=== PATIENT | male | born 1950 | race Caucasian/White ===

== ENCOUNTER 2019-05-14 18:13 | Inpatient (IN) | payer MEDICARE, SELFPAY ==
[2019-05-14] VITALS (8 sets, daily range): BP systolic 119–148; BP diastolic 55–95; PULSE 66–83; RESP 14–19; TEMP 36.5; O2SAT 97–98; BMI 25.1
--- NOTE | 2019-05-14 18:29 | PC.NURSE ---
Patient seated in waiting room at this time. Will continue to monitor.
[2019-05-14 19:48] LABS: Basophils % 0.1 %; Eosinophils % 0.1 %; Hematocrit 41.8 % (42.0-52.0); Hemoglobin 12.7 g/dL (11.7-16.6); Lymphocytes # 1.1 10^3/uL (0.8-4.8); Lymphocytes % 5.7 %; Mean Corpuscular HGB Conc 30.4 g/dL (30.0-36.0); Mean Corpuscular Hemoglobin 28.1 pg (28.0-34.0); Mean Corpuscular Volume 92.5 fL (80-94); Mean Platelet Volume 9.6 fL (7.4-10.4); Monocytes # 0.7 10^3/uL (0.2-0.9); Monocytes % 3.3 %; Neutrophils # 17.7 10^3/uL (1.8-7.7); Neutrophils % 89.6 %; Nucleated Red Blood Cells % 0 %; Platelet Count 465 10^3/cmm (130-400); Red Blood Count 4.52 10^6/uL (4.1-5.3); Red Cell Distribution Width 15.5 % (12.1-15.1); White Blood Count 19.7 10^3/uL (4.0-10.0)
[2019-05-14 20:06] LABS: Alanine Aminotransferase 40 U/L (0-41); Albumin Level 2.8 g/dL (3.5-5.2); Alkaline Phosphatase 894 IU/L (40-130); Anion Gap 22.7 (5-19); Aspartate Amino Transferase 54 U/L (0-40); Blood Urea Nitrogen 23 mg/dL (8-23); Calcium 10.3 mg/dL (8.5-10.5); Carbon Dioxide 22 mmol/L (22-29); Chloride 86 mmol/L (98-107); Globulin 5.3 g/dL (1.3-4.6); Glomerular Filtration Rate 30.1 mL/min (90-130); Glucose 185 mg/dL (74-106); Potassium 5.7 mmol/L (3.5-5.1); Sodium 125 mmol/L (136-145); Total Bilirubin 0.6 mg/dL (0.15-1.2); Total Protein 8.1 g/dL (6.6-8.7)
--- NOTE | 2019-05-14 20:25 | ED_ITS ---
Entered by Barbara Milton, acting as scribe for Stas Lam DO May 14, 2019 18:13 HPI - General Adult General: Chief complaint: General Medical Stated complaint: back pain/not eating Time Seen by Provider: 05/14/19 20:21 Source: patient Mode of arrival: ambulatory History of Present Illness: HPI narrative: 68 y/o male presents to the ED with complaint of back/side pain. Pt states he has had increased weakness in his legs. Daughter states he is nearly unable to walk. He has difficulty swallowing and therefore has had decreased intake. Pt has hx of liver cirrhosis from heavy alcohol use, but states he stopping drinking 7 years ago. MD complaint: Back Pain Onset (ago): day(s) Location: back Radiation: abdomen Severity: moderate Pain Consistency: constant Relieving factors: none Exacerbating factors: movement Associated symptoms: Deny chest pain, confusion, dyspnea, headache(s), nausea, rash or vomiting Review of Systems Const: Reports: change in appetite and fatigue; Denies: fever or chills Eyes: Denies: change in vision or blurry vision ENMT: Reports: painful swallowing (difficulty swallowing); Denies: ear pain, nasal discharge or nasal congestion Card: Denies: chest pain, edema, shortness of breath on exertion or shortness of breath when lying down Resp: Denies: shortness of breath, productive cough or non-productive cough GI: Reports: abdominal pain; Denies: nausea, vomiting, vomiting blood, coffee grounds in vomit, diarrhea, constipation, bloating, blood in stool or black tarry stool : Reports: blood in urine; Denies: painful urination, urinary frequency or urinary urgency Musc: Reports: back pain; Denies: neck pain, extremity pain, extremity swelling, joint pain or joint swelling Skin/Breast: Denies: rash or itching Neuro: Reports: weakness in extremities and difficulty walking; Denies: headache, numbness in extremities, changes in sensation, lack of coordination, frequent falls, dizziness, vertigo or confusion Psych: Reports: depression; Denies: loss of interest, visual hallucinations, auditory hallucinations, suicidal ideation or homicidal ideation Endo: Denies: excessive urination, excessive thirst, tired all the time or cold intolerance Damaso/Lymph: Denies: easy bruising, easy bleeding, petechiae, enlarged lymph nodes or tender lymph nodes PFSH ED PFS: Statuses (acute, chronic, etc) shown below reflect problem list status as previously entered and may not be historically accurate Medical History Anxiety (Acute) Chronic back pain (Acute) Hypertension (Acute) Liver cirrhosis (Acute) Family History Other CAD (coronary artery disease) Diabetes Social History (Updated 05/14/19 @ 22:31 by Doug Sarabia MD) Smoking and tobacco status: current every day smoker Alcohol intake: current Alcohol use comment: Binge drinking Substance/Drug Use: never Physical Exam Const: COMMON NORMALS: alert GENERAL APPEARANCE: cooperative and frail appearing; not comfortable NUTRITIONAL APPEARANCE: thin ORIENTATION/CONSCIOUSNESS: Yes awake, Yes oriented to person, Yes oriented to place and Yes oriented to time HENMT: COMMON NORMALS: normocephalic, head/scalp atraumatic, hearing grossly normal bilaterally, external ears normal, EAC's normal, TM's normal bilaterally, nasal mucous membranes and turbinates normal, moist oral mucous membranes and oropharynx normal HEAD & SCALP: normocephalic and atraumatic NOSE: nasal mucous membranes and turbinates normal EXTERNAL EAR: Yes external ears normal EXTERNAL AUDITORY CANAL: EAC's normal TYMPANIC MEMBRANE: TM's normal bilaterally MOUTH: oral and palatal mucosa normal, lip normal and tongue normal THROAT: posterior oropharynx normal and tonsils normal Eye: COMMON NORMALS: PERRL, EOMs intact bilaterally, conjunctivae normal and no scleral icterus CONJUNCTIVA: Yes conjunctivae normal PUPIL: Yes PERRL Neck/C-Spine: COMMON NORMALS: no lymphadenopathy, supple, no meningeal signs, no JVD and thyroid normal THYROID: thyroid normal and asymmetrical Lymph: LYMPHATIC: no lymphadenopathy noted and no lymphedema noted Resp: COMMON NORMALS: normal respiratory effort, no retractions, no use of accessory muscles and clear to auscultation bilaterally AUSCULTATION: clear to auscultation bilaterally Cardio: COMMON NORMALS: no JVD, regular rate, regular rhythm and no murmurs RATE: regular rate RHYTHM: regular rhythm HEART SOUNDS: no murmurs GI: COMMON NORMALS: soft to palpation AUSCULTATION: Yes normoactive bowel sounds PALPATION: Yes soft, Yes tender and No guarding : COMMON NORMALS: No no CVA tenderness BLADDER/KIDNEY EXAM: No no CVA tenderness Back/Pelvis: COMMON NORMALS: negative for no CVA tenderness LUMBAR SPINE/LOWER BACK: Yes ROM limited and Yes pain with ROM Extremity: COMMON NORMALS: normal to inspection, normal capillary refill, no clubbing, cyanosis or edema, no calf tenderness and no pedal edema Neuro: SENSORIUM/ORIENTATION: Yes alert, Yes oriented to person, Yes oriented to place and Yes oriented to time MENINGEAL SIGNS: Yes no meningeal signs Skin: COMMON NORMALS: no rashes or lesions noted GENERAL SKIN EXAM: no rashes or lesions noted Course ED course: Go ahead and admit. He does have some abnormal findings on his kidneys and the hospitalist work set up further. Additionally he has some hematuria. Discussed with Dr. Ruiz Vital Signs: Vital signs: Vital Signs Temperature 97.8 F 05/16/19 11:19 Pulse Rate 65 05/16/19 11:19 Respiratory Rate 16 05/16/19 11:19 Blood Pressure 185/66 05/16/19 11:19 Pulse Oximetry 96 05/16/19 11:19 [facility] - General Adult Lab Data: Labs: Lab Results 05/14/19 05/14/19 05/14/19 Range/Units 19:20 19:20 19:20 WBC 19.7 H (4.0-10.0) 10^3/ uL RBC 4.52 (4.1-5.3) 10^6/u L Hgb 12.7 (11.7-16.6) g/dL Hct 41.8 L (42.0-52.0) % MCV 92.5 (80-94) fL MCH 28.1 (28.0-34.0) pg MCHC 30.4 (30.0-36.0) g/dL RDW 15.5 H (12.1-15.1) % Plt Count 465 H (130-400) 10^3/c mm MPV 9.6 (7.4-10.4) fL Neut % (Auto) 89.6 % Lymph % (Auto) 5.7 % Sherman % (Auto) 3.3 % Eos % (Auto) 0.1 % Baso % (Auto) 0.1 % Neut # (Auto) 17.7 H (1.8-7.7) 10^3/u L Lymph # (Auto) 1.1 (0.8-4.8) 10^3/u L Sherman # (Auto) 0.7 (0.2-0.9) 10^3/u L Eos # (Auto) 0.0 (0.0-0.8) 10^3/u L Baso # (Auto) 0.0 (0.0-0.1) 10^3/u L Nucleated RBC % (a uto) 0 % Nucleated RBCs # 0.0 /100WBC ESR (0-10) mm/hr PT (10.5-13.3) SECO NDS INR (0.8-1.2) APTT (23.9-36.7) SECO NDS Sodium 125 L (136-145) mmol/L Potassium 5.7 H (3.5-5.1) mmol/L Chloride 86 L (98-107) mmol/L Carbon Dioxide 22 (22-29) mmol/L Anion Gap 22.7 H (5-19) BUN 23 (8-23) mg/dL Creatinine 2.2 H (0.7-1.2) mg/dL GFR Calculation 30.1 L (90-130) mL/min Glucose 185 H (74-106) mg/dL Estimat Average Gl ucose Hemoglobin A1c (4.0-6.0) % Calcium 10.3 (8.5-10.5) mg/dL Total Bilirubin 0.6 (0.15-1.2) mg/dL AST 54 H (0-40) U/L ALT 40 (0-41) U/L Alkaline Phosphata se 894 H (40-130) IU/L Total Protein 8.1 (6.6-8.7) g/dL Albumin 2.8 L (3.5-5.2) g/dL Globulin 5.3 H (1.3-4.6) g/dL Lipase 25 (13-60) U/L 05/14/19 05/14/19 05/14/19 Range/Units 19:20 19:20 19:20 WBC (4.0-10.0) 10^3/ uL RBC (4.1-5.3) 10^6/u L Hgb (11.7-16.6) g/dL Hct (42.0-52.0) % MCV (80-94) fL MCH (28.0-34.0) pg MCHC (30.0-36.0) g/dL RDW (12.1-15.1) % Plt Count (130-400) 10^3/c mm MPV (7.4-10.4) fL Neut % (Auto) % Lymph % (Auto) % Sherman % (Auto) % Eos % (Auto) % Baso % (Auto) % Neut # (Auto) (1.8-7.7) 10^3/u L Lymph # (Auto) (0.8-4.8) 10^3/u L Sherman # (Auto) (0.2-0.9) 10^3/u L Eos # (Auto) (0.0-0.8) 10^3/u L Baso # (Auto) (0.0-0.1) 10^3/u L Nucleated RBC % (a uto) % Nucleated RBCs # /100WBC ESR 109 H (0-10) mm/hr PT 16.70 H (10.5-13.3) SECO NDS INR 1.31 H (0.8-1.2) APTT 33.0 (23.9-36.7) SECO NDS Sodium (136-145) mmol/L Potassium (3.5-5.1) mmol/L Chloride (98-107) mmol/L Carbon Dioxide (22-29) mmol/L Anion Gap (5-19) BUN (8-23) mg/dL Creatinine (0.7-1.2) mg/dL GFR Calculation (90-130) mL/min Glucose (74-106) mg/dL Estimat Average Gl ucose 146 Hemoglobin A1c 6.7 H (4.0-6.0) % Calcium (8.5-10.5) mg/dL Total Bilirubin (0.15-1.2) mg/dL AST (0-40) U/L ALT (0-41) U/L Alkaline Phosphata se (40-130) IU/L Total Protein (6.6-8.7) g/dL Albumin (3.5-5.2) g/dL Globulin (1.3-4.6) g/dL Lipase (13-60) U/L Discharge Plan Discharge Patient Disposition: Admitted As Inpatient Admit Provider: Doug Sarabia Clinical Impression: Chronic back pain, Hypertension, Hyponatremia, Leukocytosis, Alkaline phosphatase elevation, Hematuria Condition: Stable Referrals: [facility] [Outside] Angélica Kraft DO [Primary Care Provider] - Interventions: ED Discharge Assessment Last Done: 05/14/19 22:49 Discharge Date/Time: 05/14/19 23:08 Coding Level of Care Code ED Railroad Inspector for Chg Fwd Exam Problem Focused The documentation recorded by the Yoan granger Ashley, accurately reflects the service I personally performed and the decisions made by Genaro denny Curtis L, DO May 14, 2019 18:13
--- NOTE | 2019-05-14 20:35 | XR_ITS ---
WS: [id number] Portable AP upright chest, 05/14/2019 Clinical Data: dyspnea Comparison: None. Findings: No nodules, masses or effusions are seen. The heart is normal. The pulmonary vascularity is not increased. No pneumonia or pneumothorax is seen. Monitor leads on the chest wall. There is minim al calcification in the aortic arch. 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 XR/XR chest 1V portable [id number] Impression: Atherosclerosis.
[2019-05-14 21:05] LABS: Lipase 25 U/L (13-60)
[2019-05-14] MEDS: sodium chloride 0.9% 1,000 ML 999 ML IV (21:20)
[2019-05-14 22:03] LABS: INR 1.31 (0.8-1.2)
--- NOTE | 2019-05-14 22:06 | PM.HP ---
Providers/Chief Complaint Primary Care Provider: Angélica Kraft DO Chief Complaint: back pain/not eating History of Present Illness Neel Hunter is a 68 year old male with a past medical history of COPD, not on oxygen, hypertension, anxiety on alprazolam, chronic back pain with a history of disc herniation and compression fractures, on chronic opiates, history of liver cirrhosis, history of alcohol abuse in the past, admits to binge drinking alcohol, recent history of UTI who presents to the emergency room due to multiple pains. Patient's daughter is in the room, who helps with history taking. I will preface this by saying patient's complete review of systems was all positive. It was hard to tease out at times why exactly patient was here. Patient is originally from [place], he actually lives 150 miles from [place], his daughter works at [employer], and recently about a week ago she moved him down to be with her as she was concerned about his health. About 2 weeks ago, patient went to the [place] ER, was diagnosed with a UTI, was sent home on antibiotics, patient was taking as prescribed, however patient was having multiple falls at home, and patient's daughter was concerned about his health, poor appetite, weakness, fatigue, complaints of back pain, so she drove him down to [place] to be with her. I asked patient what is the #1 problem, what is the #1 thing bothering him, why essentially is here: He tells me that he has severe back pain, running down his thoracic and lumbar spine, and paraspinal region he has severe back pain, he also has pain in his ribs bilaterally, he takes [place] 01/11/2025 5 times daily which does not touch the pain. Patient states that he has a history of compression fractures in his back, is unsure the levels, has a history of disc herniation, is unsure of the levels, had a back injury over 30 years ago, his back pain is chronic. But recently back pain has been worsening, has been unable to sleep, has pain throughout the day, is very restless because of the pain, and is wondering why he now he has such severe back pain. Patient does report that because of his back pain, he has had a couple of falls, no significant trauma, no head trauma, no loss of consciousness, no significant bleeding. But does report generalized bony pain, but more acutely in throughout his back and his ribs bilaterally. Patient's daughter is very concerned, as patient has had multiple falls, is barely able to walk due to pain, is very weak, fatigued, tired, the last time he ate something was 4 days ago, has had roughly a 30 pound weight loss in the last few months. Other problems as above weakness, fatigue, tiredness, poor appetite, weight loss. Patient states that he just does not have an appetite, he has been losing weight. Hematuria, patient and daughter state that patient's been having gross hematuria, sometimes gross hematuria with clots, they have let his primary care physician know, his primary care physician did a UA, but they have not heard back from them. Patient is a smoker, [id number] history of smoking. No family history of bladder cancer. No family history of kidney cancer. Patient's daughter states that roughly 10 years ago he will had an episode of weight loss, spent roughly 10 days in [facility], was diagnosed with liver cirrhosis secondary to alcohol, since then he is quit drinking alcohol on a regular basis, but does binge drink alcohol. Last drink was on Jewel, he had 10 beers. Denies drinking alcohol since then. Denies using drugs. Patient's daughter is also concerned about him having difficulty swallowing, but patient does not believe this is a big issue. Patient's daughter is also concerned about some numbness in his left great toe, she thinks it is related to a gouty episode. Patient states that his left great toe is numb. Patient states that he wants us to control his pain, he wants to figure out why he is having worsening back pain, he feels weak, fatigued, tired, poor appetite. Again patient's complete review of system was positive. Review of Systems Const: Reports: chills, body aches, change in appetite and change in weight Eyes: Reports: change in vision ENMT: Reports: throat pain Card: Reports: chest pain, palpitations and shortness of breath on exertion Resp: Reports: shortness of breath and non-productive cough GI: Reports: abdominal pain, nausea, vomiting and heartburn/indigestion; Denies: vomiting blood, blood in stool or black tarry stool : Reports: flank pain, urinary frequency and urinary urgency Musc: Reports: neck pain, back pain, extremity pain, extremity swelling, joint pain, limited range of motion and muscle weakness Skin/Breast: Denies: rash Neuro: Reports: headache, numbness in extremities, frequent falls and dizziness; Denies: slurred speech Psych: Denies: anxiety Endo: Reports: excessive urination and tired all the time Damaso/Lymph: Denies: easy bruising Medications/Allergies Home Medications Medication Instructions Recorded Confirmed Last Taken Type alprazolam 05/14/19 Unknown History alprazolam PO QPM 05/14/19 Unknown History hydrocodone-acetaminophen tab PO 5XD 05/14/19 Unknown History metoprolol tartrate 25 mg PO BID 05/14/19 05/14/19 Unknown History spironolactone PO QAM 05/14/19 Unknown History PFSH Acute PFSH: Statuses (acute, chronic, etc) shown below reflect problem list status as previously entered and may not be historically accurate Medical History (Updated 05/14/19 @ 22:32 by Doug Sarabia MD) Anxiety (Acute) Chronic back pain (Acute) Hypertension (Acute) Liver cirrhosis (Acute) Family History (Updated 05/14/19 @ 22:31 by Doug Sarabia MD) Other CAD (coronary artery disease) Diabetes Social History (Updated 05/14/19 @ 22:31 by Doug Sarabia MD) Smoking and tobacco status: current every day smoker Alcohol intake: current Alcohol use comment: Binge drinking Substance/Drug Use: never Vitals/I&O/Wt Last Vital Signs Pulse 83 05/14/19 18:17 Resp 16 05/14/19 18:17 BP 119/74 05/14/19 18:17 Pulse Ox 98 05/14/19 18:17 Weight last 48 hrs Weight 81.647 kg Physical Exam Const: COMMON NORMALS: no apparent distress and oriented x3 GENERAL APPEARANCE: cooperative and comfortable HENMT: COMMON NORMALS: normocephalic HEAD & SCALP: normocephalic Eye: COMMON NORMALS: PERRL, EOMs intact bilaterally and no papilledema GENERAL EYE: normal appearance of both eyes PUPIL: Yes PERRL DIRECT OPHTHALMOSCOPY: Yes no papilledema Neck/C-Spine: COMMON NORMALS: full ROM, no lymphadenopathy, no JVD and thyroid normal THYROID: thyroid normal Lymph: LYMPHATIC: no lymphadenopathy noted Chest: COMMONS NORMALS: inspection of chest normal OTHER: Bilateral chest wall pain Resp: COMMON NORMALS: normal respiratory effort, no retractions, no use of accessory muscles and clear to auscultation bilaterally AUSCULTATION: clear to auscultation bilaterally Cardio: COMMON NORMALS: no JVD, regular rate, regular rhythm, S1 normal heart sound, S2 normal heart sound, no gallops, no clicks and no murmurs RATE: regular rate RHYTHM: regular rhythm HEART SOUNDS: S1 normal and S2 normal GI: COMMON NORMALS: normal to inspection, nondistended, normoactive bowel sounds, soft to palpation, non-tender and no hepatosplenomegaly PALPATION: Yes soft and Yes no hepatosplenomegaly Back/Pelvis: GENERAL BACK: Yes CVA tenderness CVA tenderness: left THORACIC SPINE/UPPER BACK: Yes normal to inspection, Yes thoracic ROM normal, Yes pain with ROM, Yes thoracic spinal tenderness, Yes paraspinal muscle tenderness and Yes paraspinal muscle spasm LUMBAR SPINE/LOWER BACK: Yes normal to inspection, Yes lumbar ROM normal, Yes pain with ROM, Yes lumbar spinal tenderness, Yes paraspinal muscle tenderness and Yes paraspinal muscle spasm Extremity: COMMON NORMALS: normal to inspection, full ROM, normal capillary refill, no clubbing, cyanosis or edema and no pedal edema Neuro: COMMON NORMALS: oriented x3, CN's II-XII intact bilaterally, moves all extremities and no focal motor deficits Psych: COMMON NORMALS: mental status grossly normal, thought process normal and cooperative THOUGHT PROCESS: normal thought process Data : 05/14/19 19:20 05/14/19 19:20 A&P Assessment and plan (1) Chronic back pain: -Acute on chronic back pain -Patient has a history of vertebral compression fractures, and slipped disc -Has had multiple falls in the last few weeks -Given patient's hematuria, creatinine of 2.2, borderline calcium of 10.3, alk phos of 894 -Findings are concerning for multiple myeloma, prostate cancer, fracture, liver cancer associated with his known cirrhosis? Plan: -CT lumbar and thoracic spine, CT abdomen pelvis, ESR, CRP, pro-Ruben, PSA -Pain control with [place] 08/11/2024 every 4 as needed -PT OT Status: Acute Code(s): M54.9 - Dorsalgia, unspecified; G89.29 - Other chronic pain (2) Hypertension: Continue home medications Status: Acute Code(s): I10 - Essential (primary) hypertension (3) Hyponatremia: -Sodium 125, likely hypovolemic, secondary to dehydration, poor oral intake -Repeat BMP pending -Patient receiving normal saline Status: Acute Code(s): E87.1 - Hypo-osmolality and hyponatremia (4) Leukocytosis: Likely secondary to UTI Status: Acute Code(s): D72.829 - Elevated white blood cell count, unspecified (5) Alkaline phosphatase elevation: -GGT pending, work-up pending Status: Acute Code(s): R74.8 - Abnormal levels of other serum enzymes (6) Pyelonephritis of left kidney: -Receiving IV fluids -Receiving Rocephin -Blood cultures pending Status: Acute Code(s): N12 - Tubulo-interstitial nephritis, not specified as acute or chronic (7) Acute kidney injury: -Creatinine 2.2, no history of CKD, no previous creatinines to compare to -Likely secondary to dehydration, UTI, pyelonephritis -CT of the abdomen pending to evaluate for nephrolithiasis, look at kidneys, evaluate prostate Status: Acute Code(s): N17.9 - Acute kidney failure, unspecified (8) Hyperglycemia: No history of diabetes, hemoglobin A1c pending Status: Acute Code(s): R73.9 - Hyperglycemia, unspecified (9) Fatigue: -Fatigue, malaise, weakness, poor appetite, multiple falls -Etiology is unclear -We will receive PT OT -Work-up pending Status: Acute Code(s): R53.83 - Other fatigue Attestations Medical Necessity Statement*: Patient requires hospitalization, greater than 2 midnights, inpatient, for left pyelonephritis, weakness, back pain, hyponatremia, STAN Coding Level of Care Code Acute 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
[2019-05-14 22:17] LABS: Add Urine Microscopic? YES; Bilirubin Urine 1+ (NEGATIVE); Blood Urine 2+ (Negative); Glucose Urine UA Norm (Normal); Ketones Urine 1+ (Negative); Leukocyte Esterase Urine Negative (Negative); Nitrate Urine Negative (Negative); Protein Urine 1+ (Negative); Specific Gravity, Urine 1.015 (1.005-1.030); Urine Appearance Clear (CLEAR); Urine Color Yellow (Yellow); Urobilinogen Urine Norm (Negative); pH Urine 5 (5-7)
[2019-05-14 22:22] LABS: Add Urine Culture? Yes; Bacteria Urine 1+; Mucus Urine TRACE; Squamous Epithelial Cell Urine 0-4 (0-5); WBC Urine 0-4 /hpf (0-5)
[2019-05-14 22:36] LABS: Ammonia 13 umol/L (16-60)
--- NOTE | 2019-05-14 22:47 | CTR_ITS ---
PROCEDURE INFORMATION: Exam: CT Abdomen And Pelvis Without Contrast Exam date and time: 05/14/2019 11:05 PM Age: 68 years old Clinical indication: Abdominal pain; Generalized; Additional info: Aamir fontana, left flank pain TECHNIQUE: Imaging protocol: Computed tomography of the abdomen and pelvis without contrast. Total DLP: 1145.08 mGy-cm Radiation optimization: All CT scans at this facility use at least one of these dose optimization techniques: automated exposure control; mA and/or kV adjustment per patient size (includes targeted exams where dose is matched to clinical indication); or iterative reconstruction. COMPARISON: No relevant prior studies available. FINDINGS: Liver: Normal. No mass. Gallbladder and bile ducts: Normal. No calcified stones. No ductal dilation. Pancreas: Normal. No ductal dilation. Spleen: Normal. No splenomegaly. Adrenals: Normal. No mass. Kidneys and ureters: Diffuse masslike enlargement of the left kidney suggestive of an infiltrating malignant process. A contrast infused scan could further characterize this. Stomach and bowel: Unremarkable. No obstruction. No mucosal thickening. Appendix: No evidence of appendicitis. Intraperitoneal space: Unremarkable. No free air. No significant fluid collection. Vasculature: Unremarkable. No abdominal aortic aneurysm. Lymph nodes: Several enlarged lymph nodes seen about the left renal hilum and para-aortic region measuring up to 9.6 mm concerning for metastatic disease. Bladder: Unremarkable as visualized. Reproductive: Unremarkable as visualized. Bones/joints: Multiple sclerotic bony lesions seen throughout the spine, specifically at T10, L1 and L2 as well as the right iliac wing concerning for metastatic disease. Soft tissues: Unremarkable. CT/CT kidney stone [id number] IMPRESSION: Diffuse masslike enlargement of the left kidney suggestive of an infiltrating malignant process. A contrast infused scan could further characterize this. Several enlarged lymph nodes seen about the left renal hilum and para-aortic region measuring up to 9.6 mm concerning for metastatic disease. Multiple sclerotic bony lesions seen throughout the spine, specifically at T10, L1 and L2 as well as the right iliac wing concerning for metastatic disease. Radiation Dose CTDIVOL = (mGy): DLP = 1145.08 (mGy-cm)
--- NOTE | 2019-05-14 22:47 | CTR_ITS ---
PROCEDURE INFORMATION: Exam: CT Thoracic Spine Without Contrast Exam date and time: 05/14/2019 11:05 PM Age: 68 years old Clinical indication: Pain in thoracic spine; Additional info: Back pain TECHNIQUE: Imaging protocol: Computed tomography images of the thoracic spine without contrast. Total DLP: 2122.26 mGy-cm Radiation optimization: All CT scans at this facility use at least one of these dose optimization techniques: automated exposure control; mA and/or kV adjustment per patient size (includes targeted exams where dose is matched to clinical indication); or iterative reconstruction. COMPARISON: No relevant prior studies available. FINDINGS: Vertebrae: Lytic and sclerotic bony lesions seen throughout the spine, specifically at levels T5, T10, T12 and L1 with some involvement of the left posterior elements at T10 likely reflecting metastatic disease. Discs/Spinal canal/Neural foramina: No spinal canal stenosis. Soft tissues: Unremarkable. CT/CT thoracic spin wo con* [id number] IMPRESSION: Lytic and sclerotic bony lesions seen throughout the spine, specifically at levels T5, T10, T12 and L1 with some involvement of the left posterior elements at T10 likely reflecting metastatic disease. Radiation Dose CTDIVOL = (mGy): DLP = 2122.26 (mGy-cm)
--- NOTE | 2019-05-14 22:47 | CTR_ITS ---
PROCEDURE INFORMATION: Exam: CT Lumbar Spine Without Contrast Exam date and time: 05/14/2019 11:04 PM Age: 68 years old Clinical indication: Low back pain TECHNIQUE: Imaging protocol: Computed tomography images of the lumbar spine without contrast. Total DLP: 2356.79 mGy-cm Radiation optimization: All CT scans at this facility use at least one of these dose optimization techniques: automated exposure control; mA and/or kV adjustment per patient size (includes targeted exams where dose is matched to clinical indication); or iterative reconstruction. COMPARISON: No relevant prior studies available. FINDINGS: Vertebrae: L1 and L2 mixed lytic and sclerotic bony lesions likely reflecting metastatic disease. Discs/Spinal canal/Neural foramina: No disc herniations. No spinal canal stenosis. No neural foraminal narrowing. Other bones/joints: Right iliac wing mixed lytic and sclerotic bony lesion likely reflecting metastatic disease. Lymph nodes: Partially visualized is masslike enlargement of the left kidney along with some periaortic adenopathy concerning for malignancy. Soft tissues: Unremarkable. CT/CT lumbar spine wo con* [id number] IMPRESSION: 1. L1 and L2 mixed lytic and sclerotic bony lesions likely reflecting metastatic disease. 2. Right iliac wing mixed lytic and sclerotic bony lesion likely reflecting metastatic disease. 3. Partially visualized is masslike enlargement of the left kidney along with some periaortic adenopathy concerning for malignancy. Radiation Dose CTDIVOL = (mGy): DLP = 2356.79 (mGy-cm)
[2019-05-14 23:23] LABS: Prostate Specific Antigen 0.25 ng/mL (0-4)
[2019-05-14 23:33] LABS: Estmated Average Glucose 146; Hemoglobin A1C 6.7 % (4.0-6.0)
[2019-05-14 23:34] LABS: Anion Gap 19.1 (5-19); Blood Urea Nitrogen 28 mg/dL (8-23); Calcium 9.5 mg/dL (8.5-10.5); Carbon Dioxide 22 mmol/L (22-29); Chloride 94 mmol/L (98-107); Glomerular Filtration Rate 30.1 mL/min (90-130); Glucose 144 mg/dL (74-106); Magnesium 2.7 mg/dL (1.7-2.3); Osmolality Calculated 270 mOsm/kg (285-295); Phosphorus 4.3 mg/dL (2.5-4.5); Potassium 5.1 mmol/L (3.5-5.1); Sodium 130 mmol/L (136-145)
[2019-05-14] MEDS: sodium chloride 0.9% 1,000 ML 100 ML IV (23:46)
[2019-05-14] MEDS: cefTRIAXone 1,000 MG in sodium chloride 0.9% (plus) 50 ML 100 MG IV (23:46)
[2019-05-14 23:50] LABS: Alcohol Level < 10 mg/dL (0-10)
[2019-05-14] MEDS: heparin 5,000 unit/mL INJ 1 mL 5000 UNIT SUBCUT (23:54)
[2019-05-14] MEDS: HYDROcodone-acetaminophen 10-325 mg Tablet 1 TAB PO (23:54)
[2019-05-15] VITALS (27 sets, daily range): BP systolic 105–162; BP diastolic 57–90; PULSE 67–100; RESP 12–30; TEMP 36.7–37.4; O2SAT 86–98
[2019-05-15 00:05] LABS: Erythrocyte Sedimentation Rate 109 mm/hr (0-10)
[2019-05-15 01:29] LABS: Procalcitonin 1.92 ng/mL (0-0.5)
[2019-05-15 01:49] LABS: Gamma Glutamyl Transferase 1084 U/L (61-)
[2019-05-15] MEDS: HYDROmorphone 1 mg/mL INJ 1 mL IVP ×2 (03:01→11:36)
[2019-05-15 04:03] LABS: Basophils % 0.1 %; Hemoglobin 10.8 g/dL (11.7-16.6); Lymphocytes # 1.2 10^3/uL (0.8-4.8); Lymphocytes % 7.2 %; Mean Corpuscular HGB Conc 30.9 g/dL (30.0-36.0); Mean Corpuscular Hemoglobin 28.3 pg (28.0-34.0); Mean Corpuscular Volume 91.9 fL (80-94); Mean Platelet Volume 9.6 fL (7.4-10.4); Monocytes # 0.8 10^3/uL (0.2-0.9); Monocytes % 4.5 %; Nucleated Red Blood Cells % 0 %; Platelet Count 378 10^3/cmm (130-400); Red Blood Count 3.81 10^6/uL (4.1-5.3); Red Cell Distribution Width 15.5 % (12.1-15.1); White Blood Count 17.3 10^3/uL (4.0-10.0)
[2019-05-15 04:24] LABS: Alanine Aminotransferase 28 U/L (0-41); Albumin Level 2.3 g/dL (3.5-5.2); Alkaline Phosphatase 703 IU/L (40-130); Anion Gap 20.2 (5-19); Aspartate Amino Transferase 31 U/L (0-40); Blood Urea Nitrogen 22 mg/dL (8-23); Calcium 9.4 mg/dL (8.5-10.5); Carbon Dioxide 22 mmol/L (22-29); Chloride 96 mmol/L (98-107); Globulin 4.5 g/dL (1.3-4.6); Glomerular Filtration Rate 35.6 mL/min (90-130); Glucose 103 mg/dL (74-106); Magnesium 2.5 mg/dL (1.7-2.3); Phosphorus 5.1 mg/dL (2.5-4.5); Potassium 5.2 mmol/L (3.5-5.1); Sodium 133 mmol/L (136-145); Total Bilirubin 0.4 mg/dL (0.15-1.2); Total Protein 6.8 g/dL (6.6-8.7)
--- NOTE | 2019-05-15 07:30 | CT_ITS ---
WS: [id number] CT HEAD TECHNIQUE: Noncontrast CT of the head obtained from the skullbase to the vertex. CLINICAL INFORMATION: metastatic disease COMPARISON: None. DLP: 1271.[address] scans at [facility] use at least one of these dose optimization techniques: automat ed exposure control; mA and/or kV adjustment per patient size (includes targeted exams where dose is matched to clinical indication); or iterative reconstruction. FINDINGS: No evidence of intracranial hemorrhage or mass effect. Ventricular system and basal cisterns are carranza nt. Mild small vessel changes with moderate parenchymal volume loss. No extra-axial fluid collections . No evidence of mass or mass effect. Normal singh-white differentiation. Intracranial vascular calcif ication. Paranasal sinuses and mastoid air cells are well aerated. .Normal visualized soft tissues. CT/CT head wo con* [id number] IMPRESSION: 1. No evidence of intracranial hemorrhage or mass effect. 2. Mild small vessel changes. Moderate parenchymal volume loss. 3. No hydrocephalus or edema to indicate metastatic disease
--- NOTE | 2019-05-15 07:37 | XR_ITS ---
WS: [id number] Left foot, 2 views, 05/15/2019 Clinical Data: foot and great toe pain Comparison: None. Findings: No fractures or dislocations are seen. No bone destruction or erosion is noted. The joint spaces and soft tissues are normal. There is a bunion at the head of the left first metatarsal. A small cyst is noted at the proximal med ial base of the left first proximal phalanx. There is a small plantar spur. XR/XR foot LT 2V [id number] Impression: Small bunion at the head of left first metatarsal.
--- NOTE | 2019-05-15 08:16 | CT_ITS ---
WS: [id number] CT guided biopsy of the liver, 05/15/2019 Clinical Data: metastatic CA, liver and kidney mass Comparison: CT abdomen and pelvis, 05/14/2019 DLP: 1145.08 mGy-cm All CT scans at [facility] use at least one of these dose optimization techniques: automat ed exposure control; mA and/or kV adjustment per patient size (includes targeted exams where dose is matched to clinical indication); or iterative reconstruction. Findings: With the usual technique the patient's skin was cleansed with iodine and then 5 mL of 1% lidocaine we re used to infiltrate the skin and the right lower abdomen with a 30-gauge needle. Then a 25-gauge ne edle was used to anesthetize the subcutaneous tissues and the liver. A small incision was made at the skin at the site of injection. Then an 18-gauge biopsy device was used to sample 4 times in a lesion in the central portion of the liver. No complications occurred. CT/CT biopsy liver [id number] Impression: Satisfactory CT-guided biopsy of the liver.
[2019-05-15] MEDS: cefTRIAXone 1,000 MG in sodium chloride 0.9% (plus) 50 ML 100 MG IV (09:16)
[2019-05-15] MEDS: metoprolol tartrate 25 mg Tablet PO ×2 (09:16→17:59)
[2019-05-15] MEDS: sodium chloride 0.9% 1,000 ML 100 ML IV ×2 (09:17→18:02)
--- NOTE | 2019-05-15 11:54 | P.PN_ITS ---
Subjective Subjective: Interval history: History and physical was reviewed. Patient reports pain control is better. No nausea. Medications: Reviewed: Yes Vitals/I&O/Wt Last Vital Signs Temp 97.7 F 05/14/19 22:30 Pulse 71 05/15/19 08:26 Resp 19 H 05/15/19 11:36 BP 105/57 05/15/19 08:00 Pulse Ox 90 05/15/19 11:36 05/14/19 05/15/19 05/15/19 22:59 06:59 14:59 Intake Total 1000 / 1000 250 / 1250 951.667 / 951.667 Output Total 200 / 200 300 / 300 Balance 1000 / 1000 50 / 1050 651.667 / 651.667 Weight last 48 hrs Weight 77.474 kg Weight 77.474 kg Weight 81.647 kg Physical Exam Narrative: EXAM NARRATIVE: General exam no apparent distress Cardiovascular regular rate and rhythm without murmur Lungs clear Abdomen is soft, positive bowel sounds. I cannot feel any masses Extremities no cyanosis clubbing or edema. Bruises noted left great toe, dorsal surface of the foot at the base of the toe as well. Data : 05/15/19 03:00 05/15/19 03:00 Micro: Microbiology 05/14/19 22:00 Blood Culture - Preliminary Blood SPECIMEN COLLECTED 05/14/19 19:20 Blood Culture - Preliminary Blood SPECIMEN COLLECTED A&P Assessment and plan (1) Chronic back pain: Acute on chronic back pain. Multiple metastasis are seen on CT. Masslike enlargement of left kidney may indicate renal cell carcinoma. Hydrocodone has been initiated for pain. Will add fentanyl transdermal if patient is amenable to this. Status: Acute Code(s): M54.9 - Dorsalgia, unspecified; G89.29 - Other chronic pain (2) Hypertension: Continue home medications Status: Acute Code(s): I10 - Essential (primary) hypertension (3) Hyponatremia: Sodium improved Status: Acute Code(s): E87.1 - Hypo-osmolality and hyponatremia (4) Leukocytosis: Slightly improved Status: Acute Code(s): D72.829 - Elevated white blood cell count, unspecified (5) Alkaline phosphatase elevation: Secondary to bony metastasis Status: Acute Code(s): R74.8 - Abnormal levels of other serum enzymes (6) Pyelonephritis of left kidney: Continue Rocephin Status: Acute Code(s): N12 - Tubulo-interstitial nephritis, not specified as acute or chronic (7) Acute kidney injury: -Creatinine 2.2, no history of CKD, no previous creatinines to compare to -Likely secondary to dehydration, UTI, pyelonephritis -CT of the abdomen pending to evaluate for nephrolithiasis, look at kidneys, evaluate prostate Status: Acute Code(s): N17.9 - Acute kidney failure, unspecified (8) Hyperglycemia: Hemoglobin A1c only slightly high Status: Acute Code(s): R73.9 - Hyperglycemia, unspecified (9) Fatigue: Secondary to metastatic malignancy Status: Acute Code(s): R53.83 - Other fatigue (10) Renal mass: Metastatic. Discussed with radiology and liver lesions are likely the best avenue for biopsy. We will attempt this tomorrow. Will need to hold heparin prior to this procedure over 12 hours. Oncology consultation. Status: Acute Code(s): N28.89 - Other specified disorders of kidney and ureter (11) Hyperkalemia: Slight elevation. Stop Aldactone. Status: Acute Code(s): E87.5 - Hyperkalemia Attestations Medical Necessity Statement*: Needs continued hospital stay for evaluation of metastatic disease, control of pain Coding Level of Care Code Acute Hospital Unit Coordinator for g Fwd Diagnoses Chronic back pain M54.9; G89.29 Hypertension I10 Hyponatremia E87.1 Leukocytosis D72.829 Alkaline phosphatase elevation R74.8 Pyelonephritis of left kidney N12 Acute kidney injury N17.9 Hyperglycemia R73.9 Fatigue R53.83 Renal mass N28.89 Hyperkalemia E87.5
--- NOTE | 2019-05-15 12:45 | PC.CHAP ---
Pastoral Care Encounter/Spiritual Assessment Type of Contact [] Declined security risk analyst visit [] Patient/Family/Request visit [] Outpatient visit [] Follow-up visit [] Physician referral [] Code/Alert [] Routine visit [] Staff referral [] Actively dying [x] Patient sleeping [] Family support [] [] Out of room [] Palliative care [] [] Receiving care in room [] Pre-surgical visit [] Trauma [] Long length of stay [] ICU visit [] Other: Relational/Emotional Strength [] Patient feels connected with others/family/visitors/staff [] Distress [] Loneliness/isolation [] Abandonment Spirituality of Patient [] Person of Deirdre [] Attends Protestant of their Deirdre [] Believes in Prayer [] Reads Bible or Quaker materials [] There are Spiritual issues to be addressed Pattern Mechanic Interventions [] Prayer [] Active listening [] Non-anxious presence [] Spiritual/emotional support [] Crisis/trauma care [] Spiritual counseling [] Bereavement support [] Provided bereavement packet [] Provided Bible/devotional materials [] Provided toy/stuffed animal, coloring book to patient or family member [] Provided Communion [] Anointing/Shobonier [] Salvation [] Completed spiritual assessment [] Other: Impact on Illness or Injury [] Angry [] Fearful [] Anxious [] Often cries [] Exhaustion [] Unable to work [] Unable to attend evangelical [] Unable to walk/stand [] Unable to read [] Unable to drive [] Unable to eat/drink [] Unable to sleep [] Unable to be with family [] Patient intubated [] Other: Summary Patient was sleeping. Pattern Mechanic prayed for patient outside the door. Time spent with patient 5 min.
[2019-05-15] MEDS: midazolam 1 mg/mL INJ 5 ML IVP ×2 (13:47→13:51)
--- NOTE | 2019-05-15 14:12 | SUR.OPER ---
WASTED 3ML OF VERSED. WASTED 50MCG OF FENTANYL.
[2019-05-15] MEDS: iodixanol 320 mg/mL 100mL Btl IV (14:14)
--- NOTE | 2019-05-15 15:35 | PC.NURSE ---
Dr. Marsh in room. Patient complained of severe back pain and previous compression fracture. Orders received from Dr. Marsh to give 10 mg PO dexamethasone loading dose, then 4 mg PO dexamethasone BID for 3 days, then 2 mg BID for 4 days.
--- NOTE | 2019-05-15 16:24 | PC.OT ---
OT note: Attempted x3. Pt sleeping soundly on 2 trials and pt off floor at CT on other trial. Will attempt OT evaluation again later as able.
[2019-05-15] MEDS: dexamethasone 4 mg Tablet 10 MG PO (16:56)
[2019-05-15] MEDS: fentaNYL 12 mcg Patch 1 PATCH TRANSDERMA (16:59)
--- NOTE | 2019-05-15 17:52 | PM.CONSULT ---
Providers/Reason For Consult Consulting Physican/Specialty*: Clementina Marsh MD Medical oncology Reason for Consult*: Metastatic disease,To the bones and the liver and left kidney mass Attending Physician: Jovani Jones MD Primary Care Provider: Angélica Kraft DO History of Present Illness History of Present Illness Neel Hunter is a 68 year old male Was admitted to hospital with severe back pain involving lower back and also upper back as per patient he has seen chiropractor on multiple occasion, in the beginning it did help but now his pain is progressive and not being controlled with pain medication. Patient has history of disc herniation in the past and recent history of fall at home. And now progressive weakness in lower extremities and generalized weakness and fatigue and has lost about 30 pounds weight in the last few months. And also recent history of hematuria sometime with blood clots in the urine Patient has history of smoking, [id number] history. But no family history of bladder cancer or kidney cancer. 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 Patient underwent CT scan of chest abdomen pelvis which showed diffuse masslike enlargement of left kidney suggestive of infiltrating malignant process, several enlarged lymph nodes in the left renal hilum, periaortic region, multiple sclerotic bone lesions seen throughout the spine especially at T11, L1, L2 and right iliac wing concerning for metastatic disease, liver normal no mass. CT scan the head showed no metastatic disease. Patient underwent CT-guided liver biopsy on 05/15/2019, biopsies pending Patient denies any fever or chills, denies any nausea or vomiting, denies any diarrhea constipation denies any night sweats, denies any fever chills. Review of Systems Narrative: No fever or chills, denies any peripheral lymphadenopathy or neuropathy. Denies any nausea vomiting, denies any chest pain or shortness of breath or palpitation, denies any diarrhea or constipation., Denies any dysuria. Denies any wheezing or shortness of breath at rest. Denies any skin rash. Meds/Allergies Home Medications and Allergies Home Medications Medication Instructions Recorded Confirmed Type alprazolam 05/14/19 History alprazolam PO QPM 05/14/19 History hydrocodone-acetaminophen tab PO 5XD 05/14/19 History metoprolol tartrate 25 mg PO BID 05/14/19 05/14/19 History spironolactone PO QAM 05/14/19 History Allergies Allergy/AdvReac Type Severity Reaction Status Date / Time No Known Allergies Allergy Verified 05/14/19 23:37 Current Medications Current Medications Generic Name Dose Route Start Last Admin Trade Name Freq PRN Reason Stop Dose Admin Hydrocodone Bitart/Acetaminophen 1 tab 05/14/19 22:59 05/14/19 23:54 [place] 10-325 Mg PO 1 tab Q4H PRN Administration SEVERE PAIN Fentanyl 25 - 50 mcg 05/15/19 12:32 05/15/19 13:51 Sublimaze IV 05/15/19 23:59 25 mcg PRN PRN Administration procedure Fentanyl 1 patch 05/15/19 16:00 05/15/19 16:59 Duragesic 12 Mcg Patch TRANSDERMA 1 patch Q72H JULIA Administration Heparin Sodium (Beef Lung) 5,000 unit 05/14/19 22:59 05/15/19 16:51 Heparin SUBCUT Not Given Q12H JULIA Hydromorphone HCl 1 mg 05/15/19 02:24 05/15/19 11:36 Dilaudid Inj IVP 1 mg Q4H PRN Administration SEVERE PAIN Sodium Chloride 1,000 mls @ 100 mls/hr 05/14/19 22:59 05/15/19 09:17 Sodium Chloride 0.9% IV 100 mls/hr .Q10H JULIA Administration Ceftriaxone Sodium 1,000 mg/ 50 mls @ 100 mls/hr 05/14/19 22:59 05/15/19 09:16 Sodium Chloride IV 100 mls/hr DAILY JULIA Administration Protocol Metoprolol Tartrate 25 mg 05/15/19 09:00 05/15/19 09:16 Lopressor PO 25 mg BID JULIA Administration Midazolam HCl 1 mg 05/15/19 12:32 05/15/19 13:51 Versed IVP 05/15/19 23:59 1 mg PRN PRN Administration procedure Fluticasone/Salmeterol 1 puff 05/15/19 09:00 05/15/19 11:24 Advair Diskus 250-50 INHALATION 250 diskus BID JULIA Administration PFSH Acute PFSH: Statuses (acute, chronic, etc) shown below reflect problem list status as previously entered and may not be historically accurate Medical History (Updated 05/15/19 @ 11:59 by Jovani Jones MD) Anxiety (Acute) Chronic back pain (Acute) Hypertension (Acute) Liver cirrhosis (Acute) Family History (Updated 05/14/19 @ 22:31 by Doug Sarabia MD) Other CAD (coronary artery disease) Diabetes Social History (Updated 05/14/19 @ 22:31 by Doug Sarabia MD) Smoking and tobacco status: current every day smoker Alcohol intake: current Alcohol use comment: Binge drinking Substance/Drug Use: never Vitals/I&O/Wt Last Vital Signs Temp 99.3 F 05/15/19 16:00 Pulse 100 05/15/19 16:00 Resp 16 05/15/19 16:00 BP 126/72 05/15/19 16:00 Pulse Ox 91 05/15/19 16:00 05/15/19 05/15/19 05/15/19 06:59 14:59 22:59 Intake Total 250 / 1250 951.667 / 951.667 Output Total 200 / 200 550 / 550 Balance 50 / 1050 401.667 / 401.667 Weight last 48 hrs Weight 77.474 kg Weight 77.474 kg Weight 81.647 kg Physical Exam Const: COMMON NORMALS: oriented x3 HENMT: COMMON NORMALS: normocephalic and head/scalp atraumatic HEAD & SCALP: normocephalic and atraumatic MOUTH: oral and palatal mucosa normal Neck/C-Spine: GENERAL: Yes normal visual inspection Chest: COMMONS NORMALS: inspection of chest normal Resp: COMMON NORMALS: normal respiratory effort and clear to auscultation bilaterally AUSCULTATION: clear to auscultation bilaterally Cardio: COMMON NORMALS: S1 normal heart sound and S2 normal heart sound HEART SOUNDS: S1 normal and S2 normal GI: COMMON NORMALS: normal to inspection, nondistended, normoactive bowel sounds Extremity: COMMON NORMALS: normal to inspection Neuro: COMMON NORMALS: oriented x3 and moves all extremities Data Micro: Micro: Microbiology 05/14/19 22:00 Blood Culture - Pr eliminary Blood SPECIMEN [facility] ANNIE 05/14/19 19:20 Blood Culture - Pr eliminary Blood SPECIMEN [facility] ANNIE A&P Additional A&P Information Discussed with patient regarding his CT scan of abdomen pelvis findings which showed left kidney mass with regional lymphadenopathy and extensive bone metastases clinically it appears patient has metastatic renal cell carcinoma, underwent liver biopsy order by PMD, results is pending Lower/Upper back pain, History of back pain, now progressive most likely due to metastatic disease to the spine. We'll suggest starting on Decadron 10 mg IV loading dose then 4 mg every 6 hours for 48 hours then 2 mg twice a day for 3 days. Continue pain medications.Monitor calcium level. Monitor CBC and electrolytes. Once pathology report is available we will make further recommendations. Coding Level of Care Code Acute Patient Observation Assistant for Pat[facility] [place]
[2019-05-15] MEDS: sennosides-docusate Tablet 2 TAB PO (17:59)
[2019-05-15] MEDS: heparin 5,000 unit/mL INJ 1 mL 5000 UNIT SUBCUT (23:07)
[2019-05-16] VITALS (10 sets, daily range): BP systolic 130–185; BP diastolic 63–77; PULSE 50–65; RESP 16–20; TEMP 36.4–36.6; O2SAT 94–96; BMI 23.8
[2019-05-16] MEDS: HYDROmorphone 1 mg/mL INJ 1 mL IVP (01:24)
[2019-05-16] MEDS: sodium chloride 0.9% 1,000 ML 100 ML IV ×2 (04:14→18:58)
[2019-05-16 05:37] LABS: Basophils % 0.1 %; Hematocrit 34.7 % (42.0-52.0); Hemoglobin 10.4 g/dL (11.7-16.6); Lymphocytes # 0.7 10^3/uL (0.8-4.8); Lymphocytes % 4.7 %; Mean Corpuscular Hemoglobin 27.3 pg (28.0-34.0); Mean Corpuscular Volume 91.1 fL (80-94); Mean Platelet Volume 9.8 fL (7.4-10.4); Monocytes # 0.1 10^3/uL (0.2-0.9); Monocytes % 0.9 %; Neutrophils # 14.4 10^3/uL (1.8-7.7); Neutrophils % 93.3 %; Nucleated Red Blood Cells % 0 %; Platelet Count 355 10^3/cmm (130-400); Red Blood Count 3.81 10^6/uL (4.1-5.3); Red Cell Distribution Width 15.5 % (12.1-15.1); White Blood Count 15.4 10^3/uL (4.0-10.0)
[2019-05-16 05:46] LABS: Alanine Aminotransferase 26 U/L (0-41); Albumin Level 2.5 g/dL (3.5-5.2); Alkaline Phosphatase 715 IU/L (40-130); Anion Gap 16.9 (5-19); Aspartate Amino Transferase 33 U/L (0-40); Blood Urea Nitrogen 21 mg/dL (8-23); Calcium 9.8 mg/dL (8.5-10.5); Carbon Dioxide 20 mmol/L (22-29); Chloride 100 mmol/L (98-107); Globulin 4.1 g/dL (1.3-4.6); Glomerular Filtration Rate 50.7 mL/min (90-130); Glucose 151 mg/dL (65-115); Magnesium 2.7 mg/dL (1.7-2.3); Phosphorus 4.6 mg/dL (2.5-4.5); Potassium 5.9 mmol/L (3.5-5.1); Sodium 131 mmol/L (136-145); Total Bilirubin 0.3 mg/dL (0.15-1.2); Total Protein 6.6 g/dL (6.6-8.7)
--- NOTE | 2019-05-16 08:00 | MR_ITS ---
WS: [id number] MRI THORACIC SPINE noncontrast HISTORY: metastatic disease, rule out compression COMPARISON: CT thoracic spine 05/14/2019 TECHNIQUE: Multiplanar sequences are performed in sagittal and axial planes. Abnormal marrow signal throughout multiple levels of the thoracic spine. Abnormal marrow signal in T2, T5, T6, T7, T8, T9, T10, T12, L1 and L2. The most significant signal ab normality with associated mass involves the posterior elements of T10 on the LEFT. There is mixed sig nal in the posterior LEFT lateral T10 vertebral body with extension and destruction of the pedicle, l geraldine and transverse process. There is extension of the soft tissue into the T10-11 foramen. There is very slight mass effect upon the LEFT lateral thecal sac at this level. No cord compression is ident ified. Mild anterior wedging of T7 may be pathologic as there is a significant amount of tumor involv ement. MR/MR thoracic spin wo con* [id number] IMPRESSION: 1. Multilevel metastatic disease throughout the thoracic vertebral bodies. 2. Most significant involvement of the LEFT posterior T10 vertebral body and t he posterior elements. Metastatic tumor causing moderate narrowing of the T10-1 1 LEFT foramen with slight mass effect upon the lateral thecal sac. Tumor destr uction noted on the CT from 05/14/2009 does extend to about the thecal sac at thi s level with destruction of the adjacent bone.
--- NOTE | 2019-05-16 08:00 | MR_ITS ---
WS: [id number] MRI LUMBAR SPINE NONCONTRAST HISTORY: metastatic disease, rule out compression COMPARISON: 05/14/2019 TECHNIQUE: Sagittal and axial multisequence imaging is submitted. Extensive marrow signal abnormality throughout the lumbar spine. Disease in the lower thoracic spine has been described on the dedicated thoracic MRI. Extensive metastatic disease involving L1 and L2 an d to a lesser extent L4 and L3. Mild compression deformity of L4 without retropulsion. There is no co mpression upon the conus. No soft tissue mass extending into the foramen or involving the nerve roots is identified by MRI without contrast. There is a component of foraminal stenosis at L4-5 and L5-S1. Disc osteophyte encroachment upon the ventral thecal sac at L5-S1 with mild subarticular recess steno sis. MR/MR lumbar spine wo con* [id number] IMPRESSION: 1. Extensive metastatic disease throughout the lumbar spine, most significant involving L1 and L2 vertebral bodies. 2. No cord compression or compression of the conus. 3. No tumor involvement in the central canal or foramen.
[2019-05-16] MEDS: HYDROcodone-acetaminophen 10-325 mg Tablet 1 TAB PO (08:45)
[2019-05-16] MEDS: metoprolol tartrate 25 mg Tablet PO ×2 (09:38→19:02)
[2019-05-16] MEDS: sennosides-docusate Tablet 2 TAB PO ×2 (09:38→19:03)
[2019-05-16] MEDS: cefTRIAXone 1,000 MG in sodium chloride 0.9% (plus) 50 ML 100 MG IV (09:38)
[2019-05-16] MEDS: dexamethasone 4 mg Tablet PO ×2 (09:38→19:00)
[2019-05-16] MEDS: sodium polystyrene sulfonate 15 gm/60 mL Btl 30 GM PO (11:19)
[2019-05-16] MEDS: heparin 5,000 unit/mL INJ 1 mL 5000 UNIT SUBCUT ×2 (12:41→22:55)
--- NOTE | 2019-05-16 13:52 | PM.PN ---
Subjective Subjective: Interval history: Neel was just returning from his MRI when I saw him. He reports his back still hurts quite a bit. Family reports he has been a little bit more mobile. He seems to be a little clearer mentally today. Medications: Reviewed: Yes Vitals/I&O/Wt Last Vital Signs Temp 97.8 F 05/16/19 11:19 Pulse 65 05/16/19 11:19 Resp 16 05/16/19 11:19 BP 185/66 05/16/19 11:19 Pulse Ox 96 05/16/19 11:19 05/15/19 05/16/19 05/16/19 22:59 06:59 14:59 Intake Total 995 / 1439.206 4103 / 2996.667 Output Total 400 / 950 250 / 250 Balance 995 / 1446.667 600 / 2046.667 -250 / -250 Weight last 48 hrs Weight 77.474 kg Weight 77.474 kg Weight 77.474 kg Weight 81.647 kg Physical Exam Narrative: EXAM NARRATIVE: General exam no apparent distress Cardiovascular regular rate and rhythm without murmur Lungs clear Abdomen is soft, positive bowel sounds. I cannot feel any masses Extremities no cyanosis clubbing or edema. Bruises noted left great toe, dorsal surface of the foot at the base of the toe as well. Data : 05/16/19 04:40 05/16/19 04:40 Micro: Microbiology 05/14/19 22:05 Urine Culture - Preliminary Urine,Clean Catch 05/14/19 22:00 Blood Culture - Preliminary Blood NEGATIVE TO DATE 05/14/19 19:20 Blood Culture - Preliminary Blood NEGATIVE TO DATE A&P Assessment and plan (1) Chronic back pain: Acute on chronic back pain. Multiple metastasis are seen on CT. Masslike enlargement of left kidney may indicate renal cell carcinoma. Oncology has been consulted. They concur. Hydrocodone has been initiated for pain. Fentanyl has been added and will likely need to be increased tomorrow Dexamethasone added by oncology yesterday Status: Acute Code(s): M54.9 - Dorsalgia, unspecified; G89.29 - Other chronic pain (2) Hypertension: Continue home medications Status: Acute Code(s): I10 - Essential (primary) hypertension (3) Hyponatremia: Sodium stable but low Status: Acute Code(s): E87.1 - Hypo-osmolality and hyponatremia (4) Leukocytosis: Improved Status: Acute Code(s): D72.829 - Elevated white blood cell count, unspecified (5) Alkaline phosphatase elevation: Secondary to bony metastasis Status: Acute Code(s): R74.8 - Abnormal levels of other serum enzymes (6) Pyelonephritis of left kidney: Continue Rocephin. Culture pending Status: Acute Code(s): N12 - Tubulo-interstitial nephritis, not specified as acute or chronic (7) Acute kidney injury: This has improved with hydration Status: Acute Code(s): N17.9 - Acute kidney failure, unspecified (8) Hyperglycemia: Hemoglobin A1c only slightly high Status: Acute Code(s): R73.9 - Hyperglycemia, unspecified (9) Fatigue: Secondary to metastatic malignancy Status: Acute Code(s): R53.83 - Other fatigue (10) Renal mass: Metastatic. Discussed with radiology and liver lesions are likely the best avenue for biopsy.. Results are pending Status: Acute Code(s): N28.89 - Other specified disorders of kidney and ureter (11) Hyperkalemia: Aldactone stopped. Repeat level tomorrow and this afternoon Kayexalate 30 g p.o. Hydration Status: Acute Code(s): E87.5 - Hyperkalemia Additional A&P Information Past history of alcoholism and cirrhosis. Attestations Medical Necessity Statement*: Needs continued hospitalization for evaluation of widely metastatic disease, hyperkalemia, IV antibiotics for UTI Coding Level of Care Code Acute Waste/Materials Exchange Specialist for [facility] Fwd Diagnoses Chronic back pain M54.9; G89.29 Hypertension I10 Hyponatremia E87.1 Leukocytosis D72.829 Alkaline phosphatase elevation R74.8 Pyelonephritis of left kidney N12 Acute kidney injury N17.9 Hyperglycemia R73.9 Fatigue R53.83 Renal mass N28.89 Hyperkalemia E87.5
[2019-05-16] MEDS: oxyCODONE 5 mg IR Tab/Cap 15 MG PO ×2 (14:24→22:54)
[2019-05-16 16:43] LABS: Anion Gap 21.1 (5-19); Blood Urea Nitrogen 23 mg/dL (8-23); Calcium 9.8 mg/dL (8.5-10.5); Carbon Dioxide 20 mmol/L (22-29); Chloride 100 mmol/L (98-107); Glomerular Filtration Rate 55.2 mL/min (90-130); Glucose 183 mg/dL (65-115); Osmolality Calculated 283 mOsm/kg (285-295); Potassium 5.1 mmol/L (3.5-5.1); Sodium 136 mmol/L (136-145)
[2019-05-17] VITALS (12 sets, daily range): BP systolic 126–176; BP diastolic 56–76; PULSE 40–75; RESP 16–20; TEMP 36.3–36.9; O2SAT 91–96
[2019-05-17 04:27] LABS: Basophils % 0.1 %; Hematocrit 33.6 % (42.0-52.0); Hemoglobin 10.1 g/dL (11.7-16.6); Lymphocytes # 0.7 10^3/uL (0.8-4.8); Lymphocytes % 4.7 %; Mean Corpuscular HGB Conc 30.1 g/dL (30.0-36.0); Mean Corpuscular Hemoglobin 27.2 pg (28.0-34.0); Mean Corpuscular Volume 90.3 fL (80-94); Mean Platelet Volume 10.1 fL (7.4-10.4); Monocytes # 0.4 10^3/uL (0.2-0.9); Monocytes % 2.6 %; Neutrophils # 14.5 10^3/uL (1.8-7.7); Neutrophils % 91.4 %; Nucleated Red Blood Cells % 0 %; Platelet Count 360 10^3/cmm (130-400); Red Blood Count 3.72 10^6/uL (4.1-5.3); Red Cell Distribution Width 15.7 % (12.1-15.1); White Blood Count 15.8 10^3/uL (4.0-10.0)
[2019-05-17] MEDS: sodium chloride 0.9% 1,000 ML 100 ML IV ×2 (04:36→14:49)
[2019-05-17 04:47] LABS: Alanine Aminotransferase 25 U/L (0-41); Albumin Level 2.4 g/dL (3.5-5.2); Alkaline Phosphatase 693 IU/L (40-130); Anion Gap 16.9 (5-19); Aspartate Amino Transferase 33 U/L (0-40); Blood Urea Nitrogen 18 mg/dL (8-23); Calcium 9.8 mg/dL (8.5-10.5); Carbon Dioxide 23 mmol/L (22-29); Chloride 99 mmol/L (98-107); Globulin 3.5 g/dL (1.3-4.6); Glomerular Filtration Rate 55.2 mL/min (90-130); Glucose 153 mg/dL (65-115); Magnesium 2.3 mg/dL (1.7-2.3); Phosphorus 5.2 mg/dL (2.5-4.5); Potassium 4.9 mmol/L (3.5-5.1); Sodium 134 mmol/L (136-145); Total Bilirubin 0.3 mg/dL (0.15-1.2); Total Protein 5.9 g/dL (6.6-8.7)
[2019-05-17] MEDS: cefTRIAXone 1,000 MG in sodium chloride 0.9% (plus) 50 ML 100 MG IV (08:31)
[2019-05-17] MEDS: dexamethasone 4 mg Tablet PO ×2 (08:32→18:40)
[2019-05-17] MEDS: oxyCODONE 5 mg IR Tab/Cap 15 MG PO ×3 (08:32→18:41)
[2019-05-17] MEDS: sennosides-docusate Tablet 2 TAB PO (08:33)
[2019-05-17] MEDS: metoprolol tartrate 25 mg Tablet PO ×2 (08:34→18:41)
--- NOTE | 2019-05-17 09:35 | PC.SOCIAL ---
IMM Update Pg 2 of IMM given and explained to patient who voiced understanding. Signed, dated, and timed, and placed in chart. Copy provided to patient.
[2019-05-17] MEDS: heparin 5,000 unit/mL INJ 1 mL 5000 UNIT SUBCUT (10:50)
--- NOTE | 2019-05-17 11:57 | US_ITS ---
WS: [id number] Liver ultrasound. Evaluate metastatic lesions for possible biopsy. COMPARISON: 05/15/2019. Multiple hypoechoic masses are noted throughout the liver. The mass is are poorly defined but several of these are probably accessible for biopsy. There is some increased vascularity surrounding the mas ses. No ascites. US/US liver [id number] IMPRESSION: Hepatic metastatic lesions are identified. Hepatic metastasis are accessible fo r biopsy if necessary.
--- NOTE | 2019-05-17 18:19 | PM.PN ---
Subjective Subjective: Interval history: He was able to get up to the commode with some assistance/supervision. Otherwise has not been very mobile. Persistent pain in his back. Vitals/I&O/Wt Last Vital Signs Temp 97.5 F L 05/17/19 15:55 Pulse 42 L 05/17/19 15:55 Resp 18 05/17/19 15:55 BP 149/57 05/17/19 15:55 Pulse Ox 96 05/17/19 15:55 05/17/19 05/17/19 05/17/19 06:59 14:59 22:59 Intake Total 963.333 / 2133.333 1240 / 1240 Output Total 350 / 900 575 / 575 Balance 613.333 / 1233.333 665 / 665 Weight last 48 hrs Weight 83.098 kg Weight 77.474 kg Physical Exam Const: COMMON NORMALS: no apparent distress and oriented x3 GENERAL APPEARANCE: cooperative OTHER: Antalgic positioning. HENMT: COMMON NORMALS: oropharynx normal Neck/C-Spine: COMMON NORMALS: no JVD Resp: COMMON NORMALS: normal respiratory effort and clear to auscultation bilaterally AUSCULTATION: clear to auscultation bilaterally Cardio: COMMON NORMALS: no JVD, regular rhythm, S1 normal heart sound, S2 normal heart sound and no murmurs RHYTHM: regular rhythm HEART SOUNDS: S1 normal and S2 normal GI: COMMON NORMALS: normal to inspection, nondistended, normoactive bowel sounds, soft to palpation and non-tender PALPATION: Yes soft Extremity: COMMON NORMALS: no joint enlargement and no pedal edema Neuro: COMMON NORMALS: oriented x3 and moves all extremities Skin: COMMON NORMALS: no rashes or lesions noted GENERAL SKIN EXAM: no rashes or lesions noted Data : 05/17/19 03:30 05/17/19 03:30 Micro: Microbiology 05/14/19 22:05 Urine Culture - Final Urine,Clean Catch A&P Assessment and plan (1) Chronic back pain: Persistent back pain secondary to metastatic lesions to bone. Unknown primary. Radiation therapy discussed with patient and his oncologist. May initiate after tissue diagnosis obtained. Prescription with pathology, liver biopsy showing fibrosis on preliminary assessment, but does not show malignancy. Hydrocodone as needed for pain. Fentanyl has been added and will likely need to be increased tomorrow Dexamethasone added by oncology, with some improvement afterward, although still not sufficiently mobile. Status: Acute Code(s): M54.9 - Dorsalgia, unspecified; G89.29 - Other chronic pain (2) Renal mass: Metastatic malignancy suspected. Unknown primary. Prescription with pathology unfortunately so far liver biopsy unrevealing. Does show fibrosis, but no malignant cells. Discussed with radiology regarding alternative targets for biopsy. Disease in the kidney appears to be somewhat diffuse, and the radiologist is concerned that would be easy to miss as well. Liver ultrasound was obtained to assess for well-defined lesions which may be targeted, however, on repeat discussion radiologist thinks lower thoracic spine lesion would be better suited. He is scheduled for biopsy for tomorrow. With the diagnosis may be able to initiate radiation therapy. Follow-up with oncology. Status: Acute Code(s): N28.89 - Other specified disorders of kidney and ureter (3) Hypertension: Continue home medications Status: Acute Code(s): I10 - Essential (primary) hypertension (4) Hyponatremia: Sodium stable but mildly low. Monitor for changes. Status: Acute Code(s): E87.1 - Hypo-osmolality and hyponatremia (5) Leukocytosis: Improved Status: Acute Code(s): D72.829 - Elevated white blood cell count, unspecified (6) Alkaline phosphatase elevation: Secondary to bony metastasis Status: Acute Code(s): R74.8 - Abnormal levels of other serum enzymes (7) Pyelonephritis of left kidney: No organism growing on urine culture. Continue Rocephin empirically for now. Status: Acute Code(s): N12 - Tubulo-interstitial nephritis, not specified as acute or chronic (8) Acute kidney injury: This has improved with hydration Status: Acute Code(s): N17.9 - Acute kidney failure, unspecified (9) Hyperglycemia: Hemoglobin A1c 6.7 Status: Acute Code(s): R73.9 - Hyperglycemia, unspecified (10) Fatigue: Secondary to metastatic malignancy Status: Acute Code(s): R53.83 - Other fatigue (11) Hyperkalemia: Improved. Hold further IV hydration. Encourage oral intake. Diet with low potassium. Status: Acute Code(s): E87.5 - Hyperkalemia Additional A&P Information Past history of alcoholism and cirrhosis. Attestations Medical Necessity Statement*: Continue admission for management of disabling back pain, assessment of suspected metastatic malignancy. Coding Level of Care Code Acute Digital Performance Analyst for Chg Fwd Diagnoses Chronic back pain M54.9; G89.29 Renal mass N28.89 Hypertension I10 Hyponatremia E87.1 Leukocytosis D72.829 Alkaline phosphatase elevation R74.8 Pyelonephritis of left kidney N12 Acute kidney injury N17.9 Hyperglycemia R73.9 Fatigue R53.83 Hyperkalemia E87.5
[2019-05-18] VITALS (15 sets, daily range): BP systolic 144–195; BP diastolic 65–94; PULSE 50–71; RESP 12–18; TEMP 36.4–36.8; O2SAT 94–98; BMI 25.5
[2019-05-18 04:59] LABS: Basophils % 0.1 %; Hematocrit 34.5 % (42.0-52.0); Hemoglobin 10.3 g/dL (11.7-16.6); Lymphocytes # 0.7 10^3/uL (0.8-4.8); Lymphocytes % 3.9 %; Mean Corpuscular HGB Conc 29.9 g/dL (30.0-36.0); Mean Corpuscular Hemoglobin 26.7 pg (28.0-34.0); Mean Corpuscular Volume 89.4 fL (80-94); Mean Platelet Volume 10.1 fL (7.4-10.4); Monocytes # 0.7 10^3/uL (0.2-0.9); Neutrophils # 16.5 10^3/uL (1.8-7.7); Neutrophils % 91.2 %; Nucleated Red Blood Cells % 0 %; Platelet Count 397 10^3/cmm (130-400); Red Blood Count 3.86 10^6/uL (4.1-5.3); Red Cell Distribution Width 15.7 % (12.1-15.1); White Blood Count 18.1 10^3/uL (4.0-10.0)
[2019-05-18 05:20] LABS: Alanine Aminotransferase 31 U/L (0-41); Albumin Level 2.3 g/dL (3.5-5.2); Alkaline Phosphatase 639 IU/L (40-130); Anion Gap 16.2 (5-19); Aspartate Amino Transferase 39 U/L (0-40); Blood Urea Nitrogen 18 mg/dL (8-23); Calcium 9.8 mg/dL (8.5-10.5); Carbon Dioxide 21 mmol/L (22-29); Chloride 100 mmol/L (98-107); Globulin 3.3 g/dL (1.3-4.6); Glomerular Filtration Rate 74.8 mL/min (90-130); Glucose 145 mg/dL (65-115); Potassium 5.2 mmol/L (3.5-5.1); Sodium 132 mmol/L (136-145); Total Bilirubin 0.3 mg/dL (0.15-1.2); Total Protein 5.6 g/dL (6.6-8.7)
[2019-05-18] MEDS: sennosides-docusate Tablet 2 TAB PO (08:45)
[2019-05-18] MEDS: dexamethasone 4 mg Tablet PO ×2 (08:45→17:25)
[2019-05-18] MEDS: metoprolol tartrate 25 mg Tablet PO ×2 (08:45→17:25)
[2019-05-18] MEDS: HYDROmorphone 1 mg/mL INJ 1 mL IVP ×2 (08:46→17:24)
[2019-05-18] MEDS: cefTRIAXone 1,000 MG in sodium chloride 0.9% (plus) 50 ML 100 MG IV (08:47)
--- NOTE | 2019-05-18 11:57 | PC.NURSE ---
Pt transported to CT by a volunteer via wheelchair.
[2019-05-18] MEDS: midazolam 1 mg/mL INJ 2 mL 2 MG (12:15)
--- NOTE | 2019-05-18 13:19 | CT_ITS ---
WS: [id number] CT-GUIDED BIOPSY BONE/SOFT TISSUE HISTORY: Metastatic disease. Metastatic destructive bone lesion involving T10. FLUOROSCOPIC TIME: 14.1 minutes. DLP: 480.[address] scans at [facility] use at least one of these dose optimization techniques: automat ed exposure control; mA and/or kV adjustment per patient size (includes targeted exams where dose is matched to clinical indication); or iterative reconstruction. Prior imaging studies including history and physical are reviewed. Procedure, risks and complications were explained to the patient. Consent is obtained. With the patient in a prone position the T10 vertebral body is localized. Skin is cleansed with Chlor aPrep and anesthetized with lidocaine. Small dermatome is made. An 18-gauge coaxial Temno needle inse rted into the destructive bone mass near the LEFT lateral vertebral body and posterior elements. Mult iple core biopsies are performed and placed in formalin. Patient is monitored on this examination. Versed and fentanyl are given IV. Patient tolerated the procedure well. Patient transported back to his room in good condition. CT/CT biopsy bone deep IMPRESSION: 1. Uncomplicated core biopsy of the destructive bone lesion in the T10 vertebr al body. 2. Specimen placed in formalin and sent to pathology.
[2019-05-18] MEDS: fentaNYL 50 mcg/mL INJ 2mL 100 MCG (13:35)
[2019-05-18 16:36] LABS: Potassium 5.1 mmol/L (3.5-5.1)
[2019-05-18] MEDS: fentaNYL 12 mcg Patch 1 PATCH TRANSDERMA (17:23)
--- NOTE | 2019-05-18 19:03 | P.PN_ITS ---
Subjective Subjective: Interval history: Still having pain radiating down his sides. Was able to get him up to go to the restroom with supervision from his family. Vitals/I&O/Wt Last Vital Signs Temp 97.6 F 05/18/19 08:00 Pulse 70 05/18/19 12:35 Resp 18 05/18/19 17:24 BP 182/89 05/18/19 12:35 Pulse Ox 94 05/18/19 17:24 05/18/19 05/18/19 05/18/19 06:59 14:59 22:59 Intake Total 200 / 1730 Output Total 600 / 1175 200 / 200 Balance -400 / 555 -200 / -200 Weight last 48 hrs Weight 83.098 kg Weight 83.098 kg Physical Exam Const: COMMON NORMALS: no apparent distress and oriented x3 GENERAL APPEA LIZABETH: cooperative OTHER: Appears slightly more comfortable. HENMT: COMMON NORMALS: oropharynx normal Neck/C-Spine: COMMON NORMALS: no JVD Resp: COMMON NORMALS: normal respiratory effort and clear to auscultation bilaterally AUSCULTATION: clear to auscultation bilaterally Cardio: COMMON NORMALS: no JVD, regular rhythm, S1 normal heart sound, S2 normal heart sound and no murmurs RHYTHM: regular rhythm HEART SOUNDS: S1 normal and S2 normal GI: COMMON NORMALS: normal to inspection, nondistended, normoactive bowel sounds, soft to palpation and non-tender PALPATION: Yes soft Extremity: COMMON NORMALS: no joint enlargement and no pedal edema Neuro: COMMON NORMALS: oriented x3 and moves all extremities Skin: COMMON NORMALS: no rashes or lesions noted GENERAL SKIN EXAM: no rashes or lesions noted Data : 05/18/19 04:10 05/18/19 15:47 Micro: Microbiology 05/14/19 22:05 Urine Culture - Final Urine,Clean Catch A&P Assessment and plan (1) Chronic back pain: Disabling back pain secondary to metastatic disease to the spine. Activity has been severely limited, but appears to be recovering slightly, today was able to make it to the restroom with supervision from his family. He appears to be improving with steroids. Radiation therapy discussed with patient and his oncologist. May initiate after tissue diagnosis obtained. Today repeat biopsy for tissue sample of the malignancy. Hydrocodone as needed for pain. Dexamethasone added by oncology, with some improvement afterward. Status: Acute Code(s): M54.9 - Dorsalgia, unspecified; G89.29 - Other chronic pain (2) Renal mass: Metastatic malignancy suspected. Unknown primary. Prescription with pathology unfortunately so far liver biopsy unrevealing. Does show fibrosis, but no malignant cells. Today repeat biopsy this time of T10 lesion. With diagnosis may be able to initiate radiation therapy. Follow-up with oncology. Status: Acute Code(s): N28.89 - Other specified disorders of kidney and ureter (3) Hypertension: Continue metoprolol. Add amlodipine. Status: Acute Code(s): I10 - Essential (primary) hypertension (4) Hyponatremia: Sodium stable but mildly low. Monitor for changes. Status: Acute Code(s): E87.1 - Hypo-osmolality and hyponatremia (5) Leukocytosis: Suspected secondary to steroids, also possibly malignancy with metastases. Has been receiving Rocephin for UTI. No signs of acute infection. Status: Acute Code(s): D72.829 - Elevated white blood cell count, unspecified (6) Alkaline phosphatase elevation: Secondary to bony metastasis Status: Acute Code(s): R74.8 - Abnormal levels of other serum enzymes (7) Pyelonephritis of left kidney: No organism growing on urine culture. Continue Rocephin empirically for now. Status: Acute Code(s): N12 - Tubulo-interstitial nephritis, not specified as acute or chronic (8) Acute kidney injury: This has improved with hydration Status: Acute Code(s): N17.9 - Acute kidney failure, unspecified (9) Hyperglycemia: Hemoglobin A1c 6.7 Status: Acute Code(s): R73.9 - Hyperglycemia, unspecified (10) Fatigue: Secondary to metastatic malignancy Status: Acute Code(s): R53.83 - Other fatigue (11) Hyperkalemia: Improved. Hold further IV hydration. Encourage oral intake. Diet with low potassium. Status: Acute Code(s): E87.5 - Hyperkalemia Additional A&P Information Past history of alcoholism and cirrhosis. Attestations Medical Necessity Statement*: Continue admission for cyst management of metastatic malignancy with severe disabling back pain with declining functional status, arrangements for initiation of radiation therapy. If continues to improve may return home within 1-2 days. Coding Level of Care Code Acute Heel Cover Splitter for Lori Fwd Diagnoses Chronic back pain M54.9; G89.29 Renal mass N28.89 Hypertension I10 Hyponatremia E87.1 Leukocytosis D72.829 Alkaline phosphatase elevation R74.8 Pyelonephritis of left kidney N12 Acute kidney injury N17.9 Hyperglycemia R73.9 Fatigue R53.83 Hyperkalemia E87.5
[2019-05-19] VITALS (12 sets, daily range): BP systolic 125–167; BP diastolic 71–86; PULSE 59–99; RESP 16–19; TEMP 36.4–37; O2SAT 87–96
[2019-05-19] MEDS: HYDROmorphone 1 mg/mL INJ 1 mL IVP (00:24)
[2019-05-19 06:11] LABS: Basophils % 0.1 %; Hematocrit 37.8 % (42.0-52.0); Hemoglobin 11.7 g/dL (11.7-16.6); Lymphocytes % 5.2 %; Mean Corpuscular Hemoglobin 27.3 pg (28.0-34.0); Mean Corpuscular Volume 88.1 fL (80-94); Mean Platelet Volume 9.7 fL (7.4-10.4); Monocytes # 1.1 10^3/uL (0.2-0.9); Monocytes % 5.5 %; Neutrophils # 16.7 10^3/uL (1.8-7.7); Neutrophils % 88.1 %; Nucleated Red Blood Cells % 0 %; Platelet Count 329 10^3/cmm (130-400); Red Blood Count 4.29 10^6/uL (4.1-5.3); Red Cell Distribution Width 15.6 % (12.1-15.1)
[2019-05-19 06:40] LABS: Alanine Aminotransferase 40 U/L (0-41); Albumin Level 2.7 g/dL (3.5-5.2); Alkaline Phosphatase 662 IU/L (40-130); Aspartate Amino Transferase 39 U/L (0-40); Blood Urea Nitrogen 18 mg/dL (8-23); Calcium 10.1 mg/dL (8.5-10.5); Carbon Dioxide 24 mmol/L (22-29); Chloride 99 mmol/L (98-107); Globulin 3.8 g/dL (1.3-4.6); Glomerular Filtration Rate 74.8 mL/min (90-130); Glucose 116 mg/dL (65-115); Sodium 134 mmol/L (136-145); Total Bilirubin 0.3 mg/dL (0.15-1.2); Total Protein 6.5 g/dL (6.6-8.7)
[2019-05-19] MEDS: sennosides-docusate Tablet 2 TAB PO (08:59)
[2019-05-19] MEDS: dexamethasone 4 mg Tablet 2 MG PO (09:00)
[2019-05-19] MEDS: oxyCODONE 5 mg IR Tab/Cap 15 MG PO ×2 (09:00→13:25)
[2019-05-19] MEDS: cefTRIAXone 1,000 MG in sodium chloride 0.9% (plus) 50 ML 100 MG IV (09:01)
[2019-05-19] MEDS: metoprolol tartrate 25 mg Tablet PO (09:01)
[2019-05-19] MEDS: amlodipine 5 mg Tablet PO (09:01)
--- NOTE | 2019-05-19 11:35 | PC.SOCIAL ---
IMM Update Pg 2 of IMM given and explained to patient who voiced understanding. Copy in chart updated and copy provided to patient.
--- NOTE | 2019-05-19 17:49 | P.DS_ITS ---
Discharge Providers Date of Admission: 05/14/19 22:00 Date of Discharge: Date of Discharge: May 19, 2019 Attending Provider at Admission: Doug Sarabia MD Attending Provider at Discharge: Frederick Buitrago Primary Care Provider: Angélica Kraft DO Diagnoses at Discharge Discharge Diagnosis (1) Renal mass: Status: Acute (2) Chronic back pain: Status: Acute (3) Hypertension: Status: Acute (4) Hyponatremia: Status: Acute (5) Leukocytosis: Status: Acute (6) Alkaline phosphatase elevation: Status: Acute (7) Pyelonephritis of left kidney: Status: Acute (8) Acute kidney injury: Status: Acute (9) Hyperglycemia: Status: Acute (10) Fatigue: Status: Acute (11) Hyperkalemia: Status: Acute Reason for Visit Reason for Visit: Reason For Visit: back pain;left flank pain weight loss Hospital Course Hospital Course: 68-year-old gentleman with history of alcoholic liver cirrhosis, chronic back pain, HTN was admitted due to worsening back pain, poor appetite, weight loss, with alkaline phosphatase elevation on presentation, acute kidney injury, UTI, was found on assessment by CT due to concern for pyelonephritis to have a masslike enlargement of the left kidney, suspected malignancy with metastatic disease to bone and liver. He was assessed by oncology and underwent liver biopsy with finding of fibrosis, however, without noted malignancy in the sample. Biopsy was repeated in the T10 vertebra on 05/18. He has been on steroid taper with gradual improvement in symptoms, and currently has been able to reposition himself in bed and ambulate to the restroom. While awaiting pathology he is released home to follow-up with radiation oncology in office for palliative radiation, as well as oncology in office. Please follow-up pathology results when available. He received 6 days of antibiotic for UTI. Acute kidney injury resolved. Physical Exam Const: COMMON NORMALS: no apparent distress and oriented x3 GENERAL APPEARANCE: cooperative OTHER: Appears comfortable at rest. Shifting around in bed without much problem. Daughter is at bedside. HENMT: COMMON NORMALS: oropharynx normal Neck/C-Spine: COMMON NORMALS: no JVD Resp: COMMON NORMALS: normal respiratory effort and clear to auscultation bilaterally AUSCULTATION: clear to auscultation bilaterally Cardio: COMMON NORMALS: no JVD, regular rhythm, S1 normal heart sound, S2 normal heart sound and no murmurs RHYTHM: regular rhythm HEART SOUNDS: S1 normal and S2 normal GI: COMMON NORMALS: normal to inspection, nondistended, normoactive bowel sounds, soft to palpation and non-tender PALPATION: Yes soft Extremity: COMMON NORMALS: no joint enlargement and no pedal edema Neuro: COMMON NORMALS: oriented x3 and moves all extremities Skin: COMMON NORMALS: no rashes or lesions noted GENERAL SKIN EXAM: no rashes or lesions noted Discharge Data Data Completed and Pending: Completed Studies During Hospitalization Category Date Time Status CT biopsy liver 4 7000 Routine Cat Scan 05/15/19 08:[address] guided biopsy 82008 Routine Cat Scan 05/18/19 13:[address] head wo con* 7 0450 Routine Cat Scan 05/15/19 07:[address] kidney stone 7 4176 Urgent Cat Scan 05/14/19 22:[address] lumbar spine w o con* 69462 Urgen t Cat Scan 05/14/19 22:[address] thoracic spin wo con* 52825 Urge nt Cat Scan 05/14/19 22:47 Completed XR chest 1V otf ble 79464 Stat Exams 05/14/19 20:35 Completed XR foot LT 2V 736 20 Routine Exams 05/15/19 07:37 Completed MR lumbar spine w o con* 87120 Routi ne MRI 05/16/19 08:00 Completed MR thoracic spin wo con* 05657 Rout ine MRI 05/16/19 08:00 Completed US liver 05342 Ro utine Ultrasound 05/17/19 11:57 Completed Pending at discharge Category Date Time Status Blood Culture Sta t Lab 05/14/19 22:00 Results Pathology: Surgic al [PTH] Routine Pth 05/15/19 13:55 Received Pathology: Surgic al [PTH] Routine Pth 05/18/19 12:54 Received Labs from last 24 hours 05/19/19 05/19/19 05:53 03:03 WBC 19.0 H RBC 4.29 Hgb 11.7 Hct 37.8 L MCV 88.1 MCH 27.3 L MCHC 31.0 RDW 15.6 H Plt Count 329 MPV 9.7 Neut % (Auto) 88.1 Lymph % (Auto) 5.2 Baldwin % (Auto) 5.5 Eos % (Auto) 0.0 Baso % (Auto) 0.1 Neut # (Auto) 16.7 H Lymph # (Auto) 1.0 Baldwin # (Auto) 1.1 H Eos # (Auto) 0.0 Baso # (Auto) 0.0 Nucleated RBC % (a uto) 0 Nucleated RBCs # 0.0 Sodium 134 L Potassium 5.0 Chloride 99 Carbon Dioxide 24 Anion Gap 16.0 BUN 18 Creatinine 1.0 GFR Calculation 74.8 L Glucose 116 H Calcium 10.1 Total Bilirubin 0.3 AST 39 ALT 40 Alkaline Phosphata se 662 H Total Protein 6.5 L Albumin 2.7 L Globulin 3.8 Vitals: Last Vital Signs Temp 98.6 F 05/19/19 17:29 Pulse 76 05/19/19 17:29 Resp 18 05/19/19 17:29 BP 128/71 05/19/19 17:29 Pulse Ox 96 05/19/19 17:29 Discharge Plan Discharge Patient Disposition: Home Health Service Condition: Stable Prescriptions: New dexamethasone 4 mg Tablet 2 mg PO BID Qty: 8 RF: 0 fentanyl 12 mcg/hr Patch 72 Hour 1 patch transdermal Q72H Qty: 4 RF: 0 Miralax 17 gram/dose powder 17 gm PO DAILY Qty: 238 RF: 0 amlodipine 5 mg tablet 5 mg PO DAILY Qty: 30 RF: 0 Continued hydrocodone-acetaminophen 10-325 mg tablet PO 5XD RF: 0 metoprolol tartrate 50 mg tablet 25 mg PO BID RF: 0 Discontinued alprazolam 0.5 mg tablet RF: 0 alprazolam 1 mg tablet PO QPM RF: 0 spironolactone 25 mg tablet PO QAM RF: 0 Discharge Orders: Discharge Order (Routine); Ordered 05/19/19 Ordered By: Frederick Buitrago Referrals: [facility] [Outside] Angélica Kraft DO [Primary Care Provider] - 4-7 days (Please contact Dr. Kraft office on Tuesday to be seen within 7 days. ) Clementina Marsh MD [Staff Physician] - 4-7 days (Please contact the cancer treatment center on Tuesday to schedule an appointment to be seen within 7 days. ) Joe Gauthier [Staff Physician] - 4-7 days (Please contact cancer treatment on Tuesday to schedule an appointment with Dr. Gauthier to be seen within 7 days. ) Discharge Diet: Advance as tolerated and Diabetic Discharge Activity: Increase activity as tolerated and As per PT/OT instructions Patient Instructions: Fentanyl (Absorbed through the skin), Amlodipine (By mouth), Dexamethasone (By mouth), Polyethylene Glycol 3350 (By mouth), Acute Pyelonephritis (DC) Activity Restrictions/Additional Instructions: Add protein shakes, Glucerna 3 times a day. Maintain consistent carbohydrate diet due to early diabetes. Discussed with your primary care doctor. A1c during this visit is 6.7. Keep low potassium diet. Avoid foods rich in potassium like oranges, orange juice, tomatoes, bananas, potatoes, etc. Avoid constipation. Add fiber to meals. Please discuss please have your primary care doctor's office follow-up on pathology results. Follow-up with your primary care doctor regarding liver cirrhosis. Discharge Date/Time: 05/19/19 17:30 Discharge Attestations Time Spent in Discharge Care*: greater than 30 min Quality Metrics Clinical Quality Measures During this hospital stay, did patient experience: None Coding Level of Care Code Acute Range Mechanic for Lorig Fwd Diagnoses Renal mass N28.89 Chronic back pain M54.9; G89.29 Hypertension I10 Hyponatremia E87.1 Leukocytosis D72.829 Alkaline phosphatase elevation R74.8 Pyelonephritis of left kidney N12 Acute kidney injury N17.9 Hyperglycemia R73.9 Fatigue R53.83 Hyperkalemia E87.5
--- NOTE | 2019-05-21 16:39 | PC.SOCIAL ---
Approval received through [place] process on Fentanyl patches. Notified Jose and patient daughter.
--- NOTE | 2019-05-22 12:50 | SUR.OPER ---
1215- 1ML OF VERSED PUSHED PRE-PROCEDURE 50MCG OF FENTANYL PUSHED PRE-PROCEDURE
== END 2019-05-19 17:30 | disposition home health service (06) | DRG 478 ==
LOC: ER 20:25 → ICU 22:52 → MEDSURG 05-15 17:11
PROVIDERS: Internal Medicine; Radiology Diagnostic Radiology; Admitting Provider Family Medicine; Emergency Provider Family Medicine; PCP Family Medicine; Visit Provider Internal Medicine
PROC: 0FB03ZX Excision of Liver, Percutaneous Approach, Diagnostic (ICD-10-PCS; principal; 2019-05-15 13:00)
PROC: 0PB43ZX Excision of Thoracic Vertebra, Percutaneous Approach, Diagnostic (ICD-10-PCS; principal; 2019-05-18 12:15)
DX: M54.9 Dorsalgia, unspecified (principal); E87.1 Hypo-osmolality and hyponatremia; N39.0 Urinary tract infection, site not specified; N17.9 Acute kidney failure, unspecified; N10 Acute pyelonephritis; N12 Tubulo-interstitial nephritis, not specified as acute or chronic; N28.89 Other specified disorders of kidney and ureter; J44.9 Chronic obstructive pulmonary disease, unspecified; I10 Essential (primary) hypertension; F41.9 Anxiety disorder, unspecified; K70.30 Alcoholic cirrhosis of liver without ascites; R31.0 Gross hematuria; F17.210 Nicotine dependence, cigarettes, uncomplicated; R74.8 Abnormal levels of other serum enzymes; E87.5 Hyperkalemia; M79.675 Pain in left toe(s); R10.11 Right upper quadrant pain; R53.83 Other fatigue; E86.0 Dehydration; Z79.891 Long term (current) use of opiate analgesic; Z91.81 History of falling; Z87.440 Personal history of urinary (tract) infections
CPT/HCPCS: 12345; 20225; 36415; 47000; 70450; 71045; 72128; 72131; 72146; 72148; 73620; 74176; 76705; 77012; 80048; 80053; 80307; 81001; 82140; 82977; 83036; 83690; 83735; 84100; 84132; 84145; 84153; 85025; 85610; 85651; 85730; 86140; 87040; 87086; 88307; 94640; 96360; 96365; 96372; 96374; 96375; 97161; 97165; 99283; J0696; J1170; J1644; J2250; J2310; J3010; J3490; J7030; J8540; Q9967

== ENCOUNTER 2019-05-23 13:37 | Outpatient (CLI) | payer MEDICARE, SELFPAY ==
--- NOTE | 2019-05-29 17:31 | ONC FU_ITS ---
Dr. Marsh follow up note Patient: Neel Hunter Unit #: [id number]: 1950 Dicatated By: Clementina Marsh M.D.Date of Visit:May 23, 2019 Onc Med Follow-up/Prog Note History of Present Illness: Mr. Neel Fabian, is a 68-year-old gentleman who was recently admitted to hospital with a severe back pain involving upper/ lower back, as per patient initially he saw a chiropractor on multiple occasion, in the beginning it did help but later on pain become progressive and was not controlled with narcotics. Patient has history of disc herniation in the past and due to recent history of fall at home now with progressive weakness in the lower extremities. And also complaining of poor appetite and lost about 30 pounds in the last few months. Patient underwent CT scan of chest abdomen pelvis on on 05/14/2019 which showed multilevel metastatic disease throughout the thoracic vertebral bodies, most significant involvement of left posterior T10 vertebral body and posterior elements. Metastatic tumor causing moderate narrowing of the 10-11 left forearm with slight mass effect upon the lateral thecal sac. Extensive metastatic disease throughout lumbar spine, most significant involving L1 and L2 vertebral bodies. No cord compression seen Diffuse masslike enlargement of left kidney suggestive of an infiltrating malignant process. Next Several enlarged lymph nodes seen throughout the left renal hilum, periaortic region measuring up to 9.[address] scan of the head done on 05/15/2019 shows no brain metastases Patient underwent ultrasound-guided liver biopsy, which was unremarkable then on 05/18/[address]-guided biopsy of T10 vertebral body which confirmed renal cell carcinoma. Patient has history of hematuria sometime blood clots in the urine. Patient has history of smoking, 50 pack years. Next No family history of bladder cancer or kidney cancer. 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 Came for follow-up, complaining of mouth sores and bad taste and severe pain in the back not controlled with pain patch' Denies any fever chills denies any nausea or vomiting denies any headaches blurred vision double vision denies any diarrhea but constipation. Medications: ALPRAZolam 1 Tablet (of 1 mg) Oral daily, amLODIPine Besylate 1 Tablet (of 5 mg) Oral daily, Dexamethasone 1 Tablet (of 4 mg) Oral daily, fentaNYL 1 Patch(es) (of 12 mcg/hr) Patch 72 Hr Transdermal q 72 hours, HYDROcodone-Acetaminophen 1 Tablet (of 10-325 mg) Oral 5x/d, Metoprolol Tartrate 1 Tablet (of 50 mg) Oral daily, predniSONE 1 Tablet (of 10 mg) Oral daily Allergies: No Known Allergies. Review of Systems: Constitutional - Appetite is poor and weight has decreased. No fever, chills, hot flashes, or night sweats. Energy level is poor, ENMT - Positive for sinus congestion/drainage. No mouth sores. No sore throat or difficulty swallowing, Hematologic/Lymphatic - Positive for easy bruising, Respiratory - Positive for shortness of breath and cough. No pleuritic pain or hemoptysis, Cardiovascular - No angina pain. No palpitations, Gastrointestinal - Positive for nausea, no vomiting. Positive for heartburn and acid reflux. No diarrhea. Positive for constipation. No blood in the stool or black stools, Genitourinary (M) - No dysuria or hematuria. No urinary frequency. No urgency or incontinence, Musculoskeletal - Positive for joint pain, Neurologic - No headache. Positive for dizziness. No numbness/paresthesias or other focal neurologic symptoms, Psychiatric - Positive for anxiety. Vital Signs: Performed on May 23, 2019 14:47 Height - 71.00 in Weight - 162.4 lbs (HIGH) BSA - 1.93 sq.m BMI - 22.65 Temperature - 97.8 F (LOW) Pulse - 93 /min Respiration - 24 /min BP - 140/82 mm(hg) O2 Sat - 97 % Pain - 7 Performance Status: 2 - Ambulatory/capable of all self-care, unable to perform any work activities. Up and about more than 50% of waking hours. (ECOG) Physical Examination: ENMT - extensive oral thrush, Respiratory - Lungs are clear to auscultation without rhonchi or wheezing, Cardiovascular - Regular rate and rhythm of heart, Abdomen - Non-tender, non-distended, Good bowel sounds. No guarding or rebound tenderness. No pulsatile masses, Extremities - trace edema. Lab/Imaging: Most recent lab results are not available for this patient. Impression: Metastatic renal cell carcinoma per T10 vertebral body biopsy done on 05/18/2019 CT scan of abdomen showed multilevel metastatic disease throughout the thoracic vertebral body most significant involvement of left posterior T10 vertebral body and multilevel lumbar vertebral bodies involvement but no cord compression. Left kidney mass with regional lymphadenopathy. 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 Next COPD Plan: Discussed with patient regarding his disease status and treatment options at this point because of severe back pain palliative radiation therapy is a priority, in the meantime we will discuss his case with pathology regarding confirmation of renal cell carcinoma as preliminary report showed poorly differentiated carcinoma renal versus other. As far as severe back pain is concerned we will discontinue patch and start him on morphine extended release 30 mg every 12 hours and then continue hydrocodone 10/325 one-two tablets 4-6 hour on as-needed basis. As far as poor taste and painful swallowing concerned probably due to candidal esophagitis and oral thrush, we'll start him on Diflucan 150 mg daily for 1 week. And also reduce dexamethasone dose to 2 mg every 12 hours. We will see him back in 1 week with CBC CMP. Signed By: Clementina Marsh M.D. <<Signature on File>>
== END 2019-05-23 13:38 | disposition home or self-care (01) ==
LOC: ONCMED 13:42
PROVIDERS: PCP Family Medicine; Visit Provider Internal Medicine Hematology & Oncology
DX: C64.9 Malignant neoplasm of unspecified kidney, except renal pelvis (principal); C79.51 Secondary malignant neoplasm of bone; G89.3 Neoplasm related pain (acute) (chronic); K70.30 Alcoholic cirrhosis of liver without ascites; F10.188 Alcohol abuse with other alcohol-induced disorder; J44.9 Chronic obstructive pulmonary disease, unspecified; R43.9 Unspecified disturbances of smell and taste; Z79.891 Long term (current) use of opiate analgesic
CPT/HCPCS: 99203

== ENCOUNTER 2019-05-30 05:43 | Outpatient (RCR) | payer MEDICARE, SELFPAY ==
--- NOTE | 2019-05-24 14:06 | N.ONRAD NP_ITS ---
Radiation Oncology New Patient Visit Patient: Neel Hunter MR#: [id number] : 1950> Age: 68> Sex: Male> Dictated by: Dr. Joe Gauthier Date of Service: 05/24/2019 Referring Physician(s): Dr. Marsh Primary Diagnosis: C64.9 - malignant neoplasm of unspecified kidney, except renal pelvis, Diagnosed 05/24/2019 (active) and C79.51 - secondary malignant neoplasm of bone, Diagnosed 05/24/2019 (active). Chief complaint: Severe mid to low back pain for 4 weeks History of Present Illness: This is a 68-year-old male with a [id number] history of smoking and alcohol abuse who presented to the ER with severe back pain. It is mid to lower back pain radiating to the rib cage and anterior abdomen. CT of abdomen pelvis on May 14, 2019 showed diffuse masslike enlargement of the left kidney suggestive of an infiltrating malignant process and enlarged lymph nodes at left renal hilum and para-aortic region. There are multiple sclerotic bony lesions throughout the spine specifically at T10, L1 and L2 as well as the right iliac wing concerning for metastatic disease. Liver ultrasound showed multiple hypoechoic masses throughout the liver. There is some increased vascularity surrounding the masses. The patient underwent a CT-guided biopsy of the liver mass on May 15, 2019 which was nondiagnostic (no malignancy identified). A subsequent CT-guided biopsy of the T10 vertebral body mass on May 18, 2019 showed poorly differentiated metastatic carcinoma with immunohistochemical features supporting kidney primary. The patient underwent a MRI of the T and L-spine on May 16, 2019. It showed multilevel metastatic disease throughout the thoracic and the lumbar spine. Most significant involvement of the left posterior T10 vertebral body and in the posterior elements. Metastatic tumor causing moderate narrowing of the T10-11 left foramen with slight mass effect upon the lateral thecal sac. For L-spine, most significant involvement is at L1 and L2 vertebral bodies with no cord compression or compression of the conus. The patient complains of severe back pain which is not relieved by morphine and Decadron 2 mg twice daily. He notes some weakness in the lower extremities but denies numbness, tingling, incontinence of bowel or bladder. He complains of fatigue, poor appetite and a weight loss of 40 pounds in the past 2 months. Current Medications: ALPRAZolam, amLODIPine Besylate, dexamethasone, dexamethasone, fentaNYL, fluconazole, hYDROcodone-Acetaminophen, hYDROcodone-Acetaminophen, metoprolol Tartrate, morphine Sulfate ER, nystatin, predniSONE. Allergies: No Known Allergies Medical History: - Cirrhosis. No history of collagen vascular disease. No previous radiation therapy. Surgical History: Cataract excision. Family History: Father is at age 79 having experienced bone cancer, and lung cancer. Mother is at age 58 having experienced tuberculosis. Social History: Last screened on 05/24/2019 - Current every day smoker 1.0 pack/day for 50 years (50 pack years). Last screened on 05/24/2019 - Past drinker. Review of Systems: Constitutional - Complains of a poor appetite. Complains of moderate fatigue. Complains of night sweats which occur occasionally. Complains of change in weight down 40 lbs. in about 2 months. Denies fever. Eyes - Denies blurred vision. ENMT - Complains of stomatitis, altered taste and tinnitus. Denies dysphagia but has occasional odynophagia, ear pain, problems with hearing and mouth dryness. Neck - Denies neck pain. Integumentary - Denies rash. Cardiovascular - Denies arrhythmias, chest pain and edema. Respiratory - Complains of a mild cough which is productive. Complains of dyspnea associated with normal activity. Complains of wheezing. Denies hemoptysis. Gastrointestinal - Complains of abdominal pain that is persistent which is generalized / diffuse in nature. Complains of persistent constipation. Complains of heartburn / dyspepsia. Complains of nausea. Denies diarrhea and vomiting. Genitourinary (M) - Complains of nocturia gets up about 2 times per night and urgency. Denies dysuria and frequency. Musculoskeletal - Complains of bone pain in the ribs and back. Complains of localized muscle weakness which is moderate in nature. Neurologic - Complains of abnormal gait. Denies dizziness and headaches. Endocrine - Denies diabetes and thyroid disease. Hematologic/Lymphatic - Denies tender or enlarged lymph nodes. Vital Signs: Performed on 05/24/2019 9:07 AM BMI - 22.678 kg/m2, Height - 71.00 in, Weight - 162.6 lbs, Temperature - 97.7 f, Pulse - 89, Respiration - 22, O2 Sat - 97 %, Pain - 8 and BP - 150/ 94 mm(hg)(high). Physical Exam: Pertinent to diagnosis and treatment. General: Alert and oriented x 3. No acute distress. HEENT: Normocephalic, atraumatic. EOMI (Extraocular Movements Intact), PERRLA ( Pupils Equal, Round, Reactive to Light and Accommodation), Sclerae anicteric. Oral cavity is clear without lesions, masses or ulcers. NECK: Supple without supraclavicular or jugular lymphadenopathy. LUNGS: Clear to auscultation bilaterally without rales, rhonchi or wheeze. HEART: Regular rate and rhythm, normal S1 and S2 without murmur, gallop or rub. MUSCULOSKELETAL: Tenderness over the mid to lower spine. ABDOMEN: Soft, nontender, nondistended without masses or organomegaly. Bowel sounds are present. EXTREMITIES: No peripheral edema is identified. Limited motor and sensory examination are grossly intact and symmetric bilaterally. NEUROLOGIC: Cranial nerves II ???XII are grossly intact. Normal sensation, strength 5/5 in all extremities, normal gait, no ataxia. Performance Status: 3 - Capable of only limited self-care, confined to bed or chair more than 50% of waking hours. (ECOG) Pathology: poorly differentiated metastatic carcinoma with immunohistochemical features supporting kidney primary Lab: none pending Impression: This is a 68-year-old male recently diagnosed with stage IV renal cell carcinoma with a bulky left kidney mass and diffuse metastasis to the bone and liver. The bony metastases in the thoracic and lumbar spine cause significant pain not relieved by medication. Plan: I recommended palliative radiation therapy to the T10, L1 and L2 spine. The bulky left kidney mass is in close proximity to L1 and L2 therefore we will include the renal mass in the treatment almonte for cytoreductive purposes. The patient will follow up with Dr. aMrsh for systemic therapy after RT. I went over the procedure for radiation therapy to the T&L spine/left renal mass with the patient. The benefit, risks and potential side effects of radiotherapy were explained to the patient. The potential side effects include but not limited to fatigue, skin reaction, nausea, vomiting, diarrhea, radiation pneumonitis, esophagitis with odynophagia/dysphagia, damages to the heart, liver, kidneys, bowels and spinal cord. Mr. Hunter expressed good understanding and decided to proceed with the recommended treatment. He has signed an informed consent for radiotherapy. He will come back for CT simulation tomorrow. I encouraged the patient to quit smoking at least during the course of radiation therapy because of smoking can significantly increase her risk of radiation toxicities. Signed by: 05/24/2019 2:04:36 PM <<Signature on File>> CPT Code: CPT Code: Signed By: Dr. Joe Gauthier, 05/24/2019 2:04:37 PM <<Signature on File>>
--- NOTE | 2019-05-25 | CT_ITS ---
Radation Therapy Planning CT images; total exam DLP: 1078.21 mGy-cm MTDD
[2019-05-29 11:21] LABS: Basophils % 0.1 %; Hematocrit 36.9 % (42.0-52.0); Hemoglobin 11.3 g/dL (11.7-16.6); Lymphocytes # 0.9 10^3/uL (0.8-4.8); Lymphocytes % 3.3 %; Mean Corpuscular HGB Conc 30.6 g/dL (30.0-36.0); Mean Corpuscular Hemoglobin 27.6 pg (28.0-34.0); Monocytes # 1.4 10^3/uL (0.2-0.9); Monocytes % 5.2 %; Neutrophils # 24.7 10^3/uL (1.8-7.7); Nucleated Red Blood Cells % 0 %; Platelet Count 233 10^3/cmm (130-400); Red Cell Distribution Width 17.1 % (12.1-15.1); White Blood Count 27.4 10^3/uL (4.0-10.0)
[2019-05-29 11:37] LABS: Alanine Aminotransferase 47 U/L (0-41); Albumin Level 2.2 g/dL (3.5-5.2); Alkaline Phosphatase 561 IU/L (40-130); Anion Gap 17.9 (5-19); Aspartate Amino Transferase 32 U/L (0-40); Blood Urea Nitrogen 22 mg/dL (8-23); Calcium 10.4 mg/dL (8.5-10.5); Carbon Dioxide 30 mmol/L (22-29); Chloride 92 mmol/L (98-107); Globulin 3.8 g/dL (1.3-4.6); Glomerular Filtration Rate 84.4 mL/min (90-130); Glucose 108 mg/dL (65-115); Potassium 4.9 mmol/L (3.5-5.1); Sodium 135 mmol/L (136-145); Total Bilirubin 0.7 mg/dL (0.15-1.2)
--- NOTE | 2019-05-30 10:17 | ONC FU_ITS ---
Dr. Marsh follow up note Patient: Neel Hunter Unit #: [id number]: 1950 Dicatated By: Clementina Marsh M.D.Date of Visit:May 30, 2019 Onc Med Follow-up/Prog Note History of Present Illness: Mr. Neel Fabian, is a 68-year-old gentleman who was recently admitted to hospital with a severe back pain involving upper/ lower back, as per patient initially he saw a chiropractor on multiple occasion, in the beginning it did help but later on pain become progressive and was not controlled with narcotics. Patient has history of disc herniation in the past and due to recent history of fall at home now with progressive weakness in the lower extremities. And also complaining of poor appetite and lost about 30 pounds in the last few months. Patient underwent CT scan of chest abdomen pelvis on on 05/14/2019 which showed multilevel metastatic disease throughout the thoracic vertebral bodies, most significant involvement of left posterior T10 vertebral body and posterior elements. Metastatic tumor causing moderate narrowing of the 10-11 left forearm with slight mass effect upon the lateral thecal sac. Extensive metastatic disease throughout lumbar spine, most significant involving L1 and L2 vertebral bodies. No cord compression seen Diffuse masslike enlargement of left kidney suggestive of an infiltrating malignant process. Next Several enlarged lymph nodes seen throughout the left renal hilum, periaortic region measuring up to 9.[address] scan of the head done on 05/15/2019 shows no brain metastases Patient underwent ultrasound-guided liver biopsy, which was unremarkable then on 05/18/[address]-guided biopsy of T10 vertebral body which confirmed renal cell carcinoma. Patient has history of hematuria sometime blood clots in the urine. Patient has history of smoking, 50 pack years. Next No family history of bladder cancer or kidney cancer. 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 Also had episode of hematuria and clots in the urine. Patient appears in severe distress due to severe back pain, as per patient pain is '12' on the scale of 1-10. And current pain medication is not controlling pain well. Patient said his pain is more when he moves compared to when he is still.was supposed to start radiation to his spine today but now wants pain control first then radiation, Oral thrush resolved with antifungal therapy Medications: ALPRAZolam 1 Tablet (of 1 mg) Oral daily, amLODIPine Besylate 1 Tablet (of 5 mg) Oral daily, Dexamethasone 1 Tablet (of 4 mg) Oral daily, fentaNYL 1 Patch(es) (of 12 mcg/hr) Patch 72 Hr Transdermal q 72 hours, HYDROcodone-Acetaminophen 1 Tablet (of 10-325 mg) Oral 5x/d, Metoprolol Tartrate 1 Tablet (of 50 mg) Oral daily, predniSONE 1 Tablet (of 10 mg) Oral daily Allergies: No Known Allergies. Review of Systems: Constitutional - Appetite is poor and weight has decreased. No fever, chills, hot flashes, or night sweats. Energy level is poor, ENMT - Positive for sinus congestion/drainage. No mouth sores. No sore throat or difficulty swallowing, Hematologic/Lymphatic - Positive for easy bruising, Respiratory - Positive for shortness of breath and cough. No pleuritic pain or hemoptysis, Cardiovascular - No angina pain. No palpitations, Gastrointestinal - Positive for nausea, no vomiting. Positive for heartburn and acid reflux. No diarrhea. Positive for constipation. No blood in the stool or black stools, Genitourinary (M) - No dysuria or hematuria. No urinary frequency. No urgency or incontinence, Musculoskeletal - Positive for joint pain, Neurologic - No headache. Positive for dizziness. No numbness/paresthesias or other focal neurologic symptoms, Psychiatric - Positive for anxiety. Vital Signs: Vitals are not available for this patient. Performance Status: 3 - Capable of only limited self-care, confined to bed or chair more than 50% of waking hours. (ECOG) Physical Examination: ENMT - No oral exudates, ulcers, masses, thrush or mucositis. Oropharynx clear. Tongue normal, Respiratory - Lungs are clear to auscultation without rhonchi or wheezing, Cardiovascular - Regular rate and rhythm of heart, Abdomen - Non-tender, non-distended, . Good bowel sounds. No guarding or rebound tenderness. No pulsatile masses, Extremities - no focal weakness, patient is moving his extremities. Lab/Imaging: Most recent lab results are not available for this patient. Impression: Metastatic renal cell carcinoma per T10 vertebral body biopsy done on 05/18/2019 CT scan of abdomen showed multilevel metastatic disease throughout the thoracic vertebral body most significant involvement of left posterior T10 vertebral body and multilevel lumbar vertebral bodies involvement but no cord compression. Left kidney mass with regional lymphadenopathy. 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 Next COPD Plan: discussed with patient And family his daughters about his labs white blood count 27.4 hemoglobin 11.3 crit 36.9 platelets 232,000 CMP within normal limits except alkaline phosphatase 561 Clinically, patient is in severe distress due to progressive back pain and lower extremity weakness. Patient was supposed to start radiation therapy to his spine today but now refusing radiation therapy rather wants pain control, at this point we will give him morphine 1 mg IV to control his pain and then case was discussed with emergency room and patient will go to [facility] for possible inpatient pain control management as patient may benefit from morphine [employer] .leukocytosis is probably due to steroids, as no obvious sign of infection,but he will be evaluated as an inpatient for occult infection. Role of hospice was also discussed with the family as patient has metastatic renal cell carcinoma with extensive spine involvement and now with severe pain and with compromised performance status and social support system patient is temporarily staying with his daughters. Family to think about. Signed By: Clementina Marsh M.D. <<Signature on File>>
== END 2019-06-09 23:59 | disposition home or self-care (01) ==
LOC: ONCMED 05:43
PROVIDERS: Radiology Radiation Oncology; PCP Family Medicine; Visit Provider Internal Medicine Hematology & Oncology
DX: C79.51 Secondary malignant neoplasm of bone (principal); C64.2 Malignant neoplasm of left kidney, except renal pelvis; G89.3 Neoplasm related pain (acute) (chronic); F17.210 Nicotine dependence, cigarettes, uncomplicated; F10.10 Alcohol abuse, uncomplicated; K70.30 Alcoholic cirrhosis of liver without ascites; J44.9 Chronic obstructive pulmonary disease, unspecified; Z79.891 Long term (current) use of opiate analgesic
CPT/HCPCS: 36415; 77290; 77295; 77300; 77301; 77334; 77338; 80053; 85025; 96372; 99205; 99214

== ENCOUNTER 2019-05-30 10:18 | Emergency (ER) | payer MEDICARE, SELFPAY ==
[2019-05-30 10:20] VITALS: BP 130/83; PULSE 94; RESP 16; TEMP 36.6; O2SAT 88; BMI 22.0
--- NOTE | 2019-05-30 10:22 | W.ED.SOB ---
HPI - SOB/Dyspnea General: Stated Complaint: BACK PAIN Time Seen by Provider: 05/30/19 10:22 [facility] ED PFSH: Social History (Updated 05/14/19 @ 22:31 by Doug Sarabia MD) Smoking and tobacco status: current every day smoker Alcohol intake: current Discharge Plan Discharge Prescriptions: No Action hydrocodone-acetaminophen 10-325 mg tablet PO 5XD RF: 0 metoprolol tartrate 50 mg tablet 25 mg PO BID RF: 0 dexamethasone 4 mg Tablet 2 mg PO BID Qty: 8 RF: 0 fentanyl 12 mcg/hr Patch 72 Hour 1 patch transdermal Q72H Qty: 4 RF: 0 Miralax 17 gram/dose powder 17 gm PO DAILY Qty: 238 RF: 0 amlodipine 5 mg tablet 5 mg PO DAILY Qty: 30 RF: 0 Coding Level of Care Code ED 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
--- NOTE | 2019-05-30 10:23 | ED_ITS ---
Entered by Amanda Mclaughlin, acting as scribe for Stas Lam DO HPI - Back Pain/Injury General: Chief Complaint: Back Pain/Injury Stated Complaint: BACK PAIN Time Seen by Provider: 05/30/19 10:22 Source: patient and EMS Mode of arrival: EMS Limitations: no limitations History of Present Illness: HPI Narrative: 68-year-old male presents emergency room with complaints of increasing and worsening back pain poorly controlled. He has a history of renal cell CA with multiple metastasis he seen his oncologist earlier today they sent him here to be evaluated for possible admission. They given 1 mg of morphine at the doctor's office as well as some fluids. He is resting comfortably as long as he does not move when he moves in any way he starts to get increasing back pain. MD elicited complaint: back pain Pertinent past history: other (History of renal cell CA with metastasis to the thoracic and lumbar spine) Onset (ago): week(s) Timing: constant Severity: severe Similar Symptoms Previously: Yes Quality: sharp Location: lumbar spine and thoracic spine Radiation: none Exacerbating factors: movement Relieving factors: immobilization and supine Associated symptoms: Reports difficulty walking and other (No urinary retention); Deny chills, change in bowel habits, fatigue, fecal incontinence, fever(s), tingling/numbness/burning, urinary frequency or urinary urgency Treatments prior to arrival: other medications (Narcotics) Review of Systems Const: Denies: fever, chills, body aches, change in appetite, fatigue or malaise ENMT: Denies: throat pain, ear pain, nasal discharge or nasal congestion Card: Denies: chest pain, edema, shortness of breath on exertion or shortness of breath when lying down Resp: Denies: shortness of breath, productive cough or non-productive cough GI: Denies: fecal incontinence or change in bowel habits : Denies: urinary urgency Musc: Reports: back pain Skin/Breast: Denies: rash or itching Neuro: Reports: difficulty walking PFS ED PFSH: Social History (Updated 05/14/19 @ 22:31 by Doug Sarabia MD) Smoking and tobacco status: current every day smoker Alcohol intake: current Physical Exam Const: COMMON NORMALS: no apparent distress GENERAL APPEARANCE: cooperative and comfortable ORIENTATION/CONSCIOUSNESS: Yes awake, Yes oriented to person, Yes oriented to place and Yes oriented to time HENMT: COMMON NORMALS: normocephalic, head/scalp atraumatic, hearing grossly normal bilaterally, external ears normal, EAC's normal, TM's normal bilaterally, nasal mucous membranes and turbinates normal, moist oral mucous membranes and oropharynx normal HEAD & SCALP: normocephalic and atraumatic NOSE: nasal mucous membranes and turbinates normal EXTERNAL EAR: Yes external ears normal EXTERNAL AUDITORY CANAL: EAC's normal TYMPANIC MEMBRANE: TM's normal bilaterally Eye: COMMON NORMALS: PERRL, EOMs intact bilaterally, conjunctivae normal and no scleral icterus CONJUNCTIVA: Yes conjunctivae normal PUPIL: Yes PERRL Neck/C-Spine: COMMON NORMALS: full ROM, no lymphadenopathy, supple and no JVD Lymph: LYMPHATIC: no lymphadenopathy noted and no lymphedema noted Resp: COMMON NORMALS: normal respiratory effort, no retractions, no use of accessory muscles and clear to auscultation bilaterally AUSCULTATION: clear to auscultation bilaterally Cardio: COMMON NORMALS: no JVD, regular rate, regular rhythm and no murmurs RATE: regular rate RHYTHM: regular rhythm GI: COMMON NORMALS: soft to palpation and no hepatosplenomegaly AUSCULTATION: Yes normoactive bowel sounds PALPATION: Yes soft, No tender, No guarding and Yes no hepatosplenomegaly Extremity: COMMON NORMALS: normal to inspection, normal capillary refill, no clubbing, cyanosis or edema, no calf tenderness and no pedal edema OTHER: Straight leg raising is negative. Neuro: SENSORIUM/ORIENTATION: Yes oriented to person, Yes oriented to place and Yes oriented to time Skin: COMMON NORMALS: no rashes or lesions noted GENERAL SKIN EXAM: no rashes or lesions noted Course ED course: We discussed several different possibilities. He was given 4 mg when he arrived here morphine his pain was very well controlled after that he sleeping comfortably. He previously has been on fentanyl patches but was on just 12 and half milligrams and that was stopped and he was changed to long- acting morphine. His pain is pretty easily controlled. I think it might be better to adjust his pain medications Dr. Marsh and wanted him to be admitted for the NURSE PRACTICAL discussed with the hospitalist on-call they do not feel that that would necessarily be appropriate. Offered the patient referral to care home placement with hospice which Dr. Marsh had even agreed would be appropriate. Patient declined that for logistical and financial reasons ultimately after long discussion along ER stay decided rather go home with hospice hospice consult was initiated in the emergency room and start him on a fentanyl patch use hydrocodone for breakthrough is Ernesto has dexamethasone they will look at getting set up for palliative radiation to his spine. Vital Signs: Vital signs: Vital Signs Temperature 98 F 05/30/19 10:20 Pulse Rate 70 05/30/19 15:06 Respiratory Rate 18 05/30/19 15:06 Blood Pressure 134/69 05/30/19 15:06 Pulse Oximetry 92 05/30/19 15:06 MDM - Back Pain/Injury Lab Data: Labs: Lab Results 05/30/19 05/30/19 05/30/19 Range/Units 10:45 10:45 10:45 WBC 31.2 H* (4.0-10.0) 10^3/ uL RBC 4.20 (4.1-5.3) 10^6/u L Hgb 11.8 (11.7-16.6) g/dL Hct 39.7 L (42.0-52.0) % MCV 94.5 H (80-94) fL MCH 28.1 (28.0-34.0) pg MCHC 29.7 L (30.0-36.0) g/dL RDW 16.9 H (12.1-15.1) % Plt Count 243 (130-400) 10^3/c mm MPV 10.3 (7.4-10.4) fL Neut % (Auto) 92.7 % Lymph % (Auto) 1.1 % [place] % (Auto) 4.3 % Eos % (Auto) 0.0 % Baso % (Auto) 0.1 % Neut # (Auto) 28.9 H (1.8-7.7) 10^3/u L Lymph # (Auto) 0.4 L (0.8-4.8) 10^3/u L [place] # (Auto) 1.4 H (0.2-0.9) 10^3/u L Eos # (Auto) 0.0 (0.0-0.8) 10^3/u L Baso # (Auto) 0.0 (0.0-0.1) 10^3/u L Nucleated RBC % (a uto) 0 % Nucleated RBCs # 0.0 /100WBC Sodium 133 L (136-145) mmol/L Potassium 4.7 (3.5-5.1) mmol/L Chloride 91 L (98-107) mmol/L Carbon Dioxide 27 (22-29) mmol/L Anion Gap 19.7 H (5-19) BUN 27 H (8-23) mg/dL Creatinine 1.0 (0.7-1.2) mg/dL GFR Calculation 74.8 L (90-130) mL/min Glucose 251 H (65-115) mg/dL Calcium 10.4 (8.5-10.5) mg/dL Total Bilirubin 0.7 (0.15-1.2) mg/dL AST 32 (0-40) U/L ALT 51 H (0-41) U/L Alkaline Phosphata se 643 H (40-130) IU/L Total Protein 6.4 L (6.6-8.7) g/dL Albumin 2.4 L (3.5-5.2) g/dL Globulin 4.0 (1.3-4.6) g/dL Lipase 8 L (13-60) U/L Serum Ketones Negative (Negative) Influenza Type A A g (Negative) POC Influenza B Ag (Negative) 05/30/19 Range/Units 13:10 WBC (4.0-10.0) 10^3/ uL RBC (4.1-5.3) 10^6/u L Hgb (11.7-16.6) g/dL Hct (42.0-52.0) % MCV (80-94) fL MCH (28.0-34.0) pg MCHC (30.0-36.0) g/dL RDW (12.1-15.1) % Plt Count (130-400) 10^3/c mm MPV (7.4-10.4) fL Neut % (Auto) % Lymph % (Auto) % [place] % (Auto) % Eos % (Auto) % Baso % (Auto) % Neut # (Auto) (1.8-7.7) 10^3/u L Lymph # (Auto) (0.8-4.8) 10^3/u L [place] # (Auto) (0.2-0.9) 10^3/u L Eos # (Auto) (0.0-0.8) 10^3/u L Baso # (Auto) (0.0-0.1) 10^3/u L Nucleated RBC % (a uto) % Nucleated RBCs # /100WBC Sodium (136-145) mmol/L Potassium (3.5-5.1) mmol/L Chloride (98-107) mmol/L Carbon Dioxide (22-29) mmol/L Anion Gap (5-19) BUN (8-23) mg/dL Creatinine (0.7-1.2) mg/dL GFR Calculation (90-130) mL/min Glucose (65-115) mg/dL Calcium (8.5-10.5) mg/dL Total Bilirubin (0.15-1.2) mg/dL AST (0-40) U/L ALT (0-41) U/L Alkaline Phosphata se (40-130) IU/L Total Protein (6.6-8.7) g/dL Albumin (3.5-5.2) g/dL Globulin (1.3-4.6) g/dL Lipase (13-60) U/L Serum Ketones (Negative) Influenza Type A A g Negative (Negative) POC Influenza B Ag Negative (Negative) Discharge Plan Discharge Patient Disposition: Home, Self-Care Clinical Impression: Liver cirrhosis Renal cell carcinoma Qualifiers: Laterality: unspecified laterality Qualified Code(s): C64.9 - Malignant neoplasm of unspecified kidney, except renal pelvis Condition: Stable Prescriptions: New fentanyl 50 mcg/hr patch 72 hour 1 patch TRANSDERMA Q72H Qty: 5 RF: 0 No Action hydrocodone-acetaminophen 10-325 mg tablet 1 tab PO 5XD PRN (Reason: Pain) RF: 0 metoprolol tartrate 50 mg tablet 25 mg PO BID RF: 0 dexamethasone 4 mg Tablet 2 mg PO BID Qty: 8 RF: 0 amlodipine 5 mg tablet 5 mg PO DAILY Qty: 30 RF: 0 Xanax 1 mg Tablet 1 mg PO QPM PRN (Reason: Anxiety) RF: 0 morphine 30 mg Tablet Extended Release 30 mg PO Q12H RF: 0 levothyroxine 50 mcg Tablet 50 mcg PO DAILY RF: 0 Colace 100 mg Capsule 100 mg PO PRN RF: 0 Discharge Orders: Discharge Order (Routine); Ordered 05/30/19 Ordered By: Stas Lam Referrals: Angélica Kraft DO [Primary Care Provider] - Discharge Diet: Usual diet Discharge Activity: Increase activity as tolerated Activity Restrictions/Additional Instructions: Patient to be enrolled in hospice. Hospice will manage your pain control medications. We have given you a prescription for fentanyl patch to start now in place of the extended release morphine. Discharge Date/Time: 05/30/19 16:11 Coding Level of Care Code ED Hearing Impaired Teacher for Chg Fwd Exam Comprehensive The documentation recorded by the Arnoldo granger Bridget Annette, accurately reflects the service I personally performed and the decisions made by , Stas Lam DO May 30, 2019 10:18
--- NOTE | 2019-05-30 10:25 | ECG_ITS ---
Measurements Intervals [place] Rate: 91 P: 34 TN: 140 QRS: 47 QRSD: 86 T: 81 QT: 341 QTc: 421 SINUS RHYTHM WITH OCCASIONAL VENTRICULAR PREMATURE COMPLEXES WITH OCCASIONAL SUPRAVENTRICULAR PREMATURE COMPLEXES POSSIBLE RIGHT VENTRICULAR CONDUCTION DELAY [RSR (QR) IN V1/V2] MINIMAL ST DEPRESSION [0.025+ mV ST DEPRESSION] No previous ECG available for comparison Electronically Signed On 05-30-2019 13:16:58 AUTOMATED CUTTING MACHINE OPERATOR by Shruthi Dudley M.D. [email or web address]
[2019-05-30 10:54] LABS: Basophils % 0.1 %; Hematocrit 39.7 % (42.0-52.0); Hemoglobin 11.8 g/dL (11.7-16.6); Lymphocytes # 0.4 10^3/uL (0.8-4.8); Lymphocytes % 1.1 %; Mean Corpuscular HGB Conc 29.7 g/dL (30.0-36.0); Mean Corpuscular Hemoglobin 28.1 pg (28.0-34.0); Mean Corpuscular Volume 94.5 fL (80-94); Mean Platelet Volume 10.3 fL (7.4-10.4); Monocytes # 1.4 10^3/uL (0.2-0.9); Monocytes % 4.3 %; Neutrophils # 28.9 10^3/uL (1.8-7.7); Neutrophils % 92.7 %; Nucleated Red Blood Cells % 0 %; Platelet Count 243 10^3/cmm (130-400); Red Cell Distribution Width 16.9 % (12.1-15.1)
[2019-05-30 11:05] VITALS: RESP 16
[2019-05-30 11:05] LABS: Ketone (Acetest) Serum Negative (Negative)
[2019-05-30] MEDS: morphine 4 mg/mL SDV 1 mL IVP (11:05)
[2019-05-30] MEDS: ondansetron 2 mg/ML SDV 2 mL 4 MG IVP (11:05)
[2019-05-30] MEDS: sodium chloride 0.9% 1,000 ML 999 ML IV (11:09)
[2019-05-30 11:10] LABS: Alanine Aminotransferase 51 U/L (0-41); Albumin Level 2.4 g/dL (3.5-5.2); Alkaline Phosphatase 643 IU/L (40-130); Anion Gap 19.7 (5-19); Aspartate Amino Transferase 32 U/L (0-40); Blood Urea Nitrogen 27 mg/dL (8-23); Calcium 10.4 mg/dL (8.5-10.5); Carbon Dioxide 27 mmol/L (22-29); Chloride 91 mmol/L (98-107); Glomerular Filtration Rate 74.8 mL/min (90-130); Glucose 251 mg/dL (65-115); Lipase 8 U/L (13-60); Potassium 4.7 mmol/L (3.5-5.1); Sodium 133 mmol/L (136-145); Total Bilirubin 0.7 mg/dL (0.15-1.2); Total Protein 6.4 g/dL (6.6-8.7)
[2019-05-30 11:12] LABS: White Blood Count 31.2 10^3/uL (4.0-10.0)
[2019-05-30] MEDS: ipratropium-albuterol 3 mL Neb INHALATION (11:12)
[2019-05-30 11:13] VITALS: PULSE 79; RESP 16; O2SAT 94
[2019-05-30 11:19] VITALS: PULSE 80; RESP 16; O2SAT 94
--- NOTE | 2019-05-30 11:32 | XR_ITS ---
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 The heart and mediastinal interfaces were normal. The lung almonte show normal aeration. No pneumonia, pleural effusion, pulmonary edema, or mass effect . The hilum and apices are normal. No osseous abnormalities other than the shoulder problems. XR/XR chest 1V portable [id number] IMPRESSION: Negative chest for acute pathology. 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
--- NOTE | 2019-05-30 12:54 | PC.NURSE ---
PATIENT RESTING QUIETLY LOOKING FOR JAIL PLACEMENT AND HOSPICE CARE
[2019-05-30 14:43] LABS: Influenza A by IFA Negative (Negative); Influenza B by IFA Negative (Negative)
--- NOTE | 2019-05-30 14:54 | DCPLANNER ---
manager disaster recovery was asked by Dr. Lam to speak with patient and family about longterm and hospice placement. manager disaster recovery spoke with patient and family, was told that patient did not want to go to longterm, but that he wanted to go home and he would go home with hospice care. manager disaster recovery gave patient the performance data to review before picking a hospice company. manager disaster recovery gave patient the Patient Choice letter to sign when picking a hospice company, patients family picked [facility], field nurse case manager informed ED physician that patient wanted to go home on hospice. manager disaster recovery called the hospice company to see if they could come and speak with the patient and patients family. Hospice is in the room at this time.
--- NOTE | 2019-05-30 15:04 | PC.NURSE ---
HOSPICE IN ROOM TO SET UP FOR HOME CARE
[2019-05-30 15:06] VITALS: BP 134/69; PULSE 70; RESP 18; O2SAT 92
== END 2019-05-30 16:11 | disposition home or self-care (01) ==
PROVIDERS: Emergency Provider Family Medicine; PCP Family Medicine
DX: K74.60 Unspecified cirrhosis of liver (principal); C64.9 Malignant neoplasm of unspecified kidney, except renal pelvis; C79.51 Secondary malignant neoplasm of bone; F17.200 Nicotine dependence, unspecified, uncomplicated; Z79.891 Long term (current) use of opiate analgesic
CPT/HCPCS: 36415; 71045; 80053; 82009; 83690; 85025; 87804; 93005; 94640; 96361; 96374; 96375; 99283; 99284; J2270; J2405; J7030